=== PATIENT | male | born 1950 | race Caucasian/White ===

== ENCOUNTER 2017-03-18 08:19 | Emergency (ER) | payer MEDICARE, OTHER ==
[2017-03-18 08:48] VITALS: BP 118/68; PULSE 69; RESP 16; TEMP 97.8
[2017-03-18] MEDS ORDERED: IBUPROFEN 600 MG TAB PO STA (08:50)
--- NOTE | 2017-03-18 08:55 | ED ---
Upper Extremity HPI - General Chief Complaint: Extremity Injury, Upper Stated Complaint: LEFT WRIST INJURY Time Seen by Provider: 03/18/17 08:41 Source: patient, RN notes reviewed Mode of arrival: ambulatory Limitations: no limitations - History of Present Illness Initial Comments: Patient is a 67-year-old male presents to the emergency room for evaluation of left wrist pain. Patient states yesterday he tripped and fell landing on his left wrist in flexion position. Patient states he's having pain in his wrist. Patient denies any numbness or tingling in his fingers. Patient denies any other injuries during incident. Patient states it hurts to make a fist. Patient states it hurts to flex or extend his wrist. Patient denies taking anything for pain. Patient denies any previous injuries or surgeries to that wrist. Place: home - Related Data Home Medications Medication Instructions Recorded Confirmed Donepezil [Aricept] 10 mg PO HS 03/31/15 03/18/17 Omeprazole [PriLOSEC] 20 mg PO AC-BRKFST 01/12/16 03/18/17 Atorvastatin [Lipitor] 20 mg PO HS 03/18/17 03/18/17 Citalopram Hydrobromide [CeleXA] 20 mg PO HS 03/18/17 03/18/17 Ibuprofen [Motrin] 800 mg PO DAILY PRN 03/18/17 03/18/17 Losartan-Hctz 50-12.5 mg [Hyzaar 1 tab PO BID 03/18/17 03/18/17 50-12.5] Previous Rx's Medication Instructions Recorded Metoprolol Tartrate [Lopressor] 25 mg PO BID #60 tab 01/14/16 Allergies Allergy/AdvReac Type Severity Reaction Status Date / Time No Known Allergies Allergy Verified 03/18/17 09:29 Review of Systems ROS Statement: Those systems with pertinent positive or pertinent negative responses have been documented in the HPI. ROS Other: All systems not noted in ROS Statement are negative. Past Medical History Past Medical History: Cancer, GERD/Reflux, Hypertension, Memory Impairment, Prostate Disorder Additional Past Medical History / Comment(s): sarcoma, chronic back pain, possible hx of seizures - pt has a language barrier and not available, pt having difficulty understanding my questions. he is on lamictal and keppra History of Any Multi-Drug Resistant Organisms: None Reported Past Surgical History: Hernia Repair Past Anesthesia/Blood Transfusion Reactions: No Reported Reaction Past Psychological History: No Psychological Hx Reported Smoking Status: Never smoker Past Alcohol Use History: Occasional Past Drug Use History: None Reported - Past Family History Father Family Medical History: Hypertension General Exam - General Exam Comments Initial Comments: Sitting in exam room, no acute distress. Limitations: no limitations General appearance: alert, in no apparent distress Head exam: Present: atraumatic, normocephalic, normal inspection Eye exam: Present: normal appearance ENT exam: Present: normal exam Neck exam: Present: normal inspection Respiratory exam: Absent: respiratory distress Left Hand Wrist exam: Present: tenderness (Tenderness on palpating over distal ulnar and radial portions of the wrist), swelling. Absent: full ROM (Limited flexion and extension secondary to pain.) Neuro motor exam: Present: thumb opposition intact Vascular: Present: normal capillary refill (Capillary refill less than 2 seconds ), radial pulse (2+), ulnar pulse (2+) Back exam: Present: normal inspection Neurological exam: Present: alert, oriented X3, CN II-XII intact, normal gait Psychiatric exam: Present: normal affect, normal mood Skin exam: Present: warm, dry, intact, normal color. Absent: rash Course Vital Signs 03/18/17 08:45 Temperature 97.8 F Pulse Rate 69 Respiratory 16 Rate Blood Pressure 118/68 O2 Sat by Pulse 96 Oximetry Medical Decision Making - Medical Decision Making Patient is a 67-year-old male presents to the emergency room for evaluation of left wrist pain. Left wrist/hand x-ray showed no acute fractures or dislocations. Patient placed in an Ravi wrap and advised to follow-up with primary care provider symptoms are not improving in 7-10 days. Patient can take Tylenol or Motrin for pain. Patient states he understands everything that was discussed with him. Return parameters discussed. - Radiology Data Radiology results: report reviewed, image reviewed Disposition Clinical Impression: Left wrist sprain Disposition: HOME SELF-CARE Condition: Good Instructions: Wrist Sprain (ED) Additional Instructions: Ice on and off for 10-15 minutes for the next 24-48 hours. Take Tylenol or Motrin as needed for pain. Please follow-up with primary care provider in 7-10 days if symptoms are not improving. If new symptoms develop or symptoms worsen, please return to the ER. Referrals: Dinesh Wray MD [Primary Care Provider] - 1-2 days Time of Disposition: 09:33
--- NOTE | 2017-03-18 09:14 | XR ---
EXAMINATION TYPE: XR hand complete LT, XR wrist complete LT DATE OF EXAM: 03/18/2017 9:10 AM CLINICAL HISTORY: pain TECHNIQUE: Frontal, lateral and oblique images of the left hand are obtained. COMPARISON: None. FINDINGS: There is no acute fracture/dislocation evident. The joint spaces appear within normal limi ts. The overlying soft tissue appears unremarkable. IMPRESSION: There is no acute fracture or dislocation. ICD 10 NO FRACTURE, INITIAL EVALUATION EXAMINATION TYPE: XR hand complete LT, XR wrist complete LT DATE OF EXAM: 03/18/2017 9:10 AM CLINICAL HISTORY: pain TECHNIQUE: Frontal, lateral and oblique images of the left wrist are obtained. COMPARISON: None. FINDINGS: There is no acute fracture/dislocation evident. The joint spaces appear within normal meza its. The overlying soft tissue appears unremarkable. IMPRESSION: There is no acute fracture or dislocation seen. ICD 10 NO FRACTURE, INITIAL EVALUATION
== END 2017-03-18 09:38 | disposition home or self-care (01) ==
LOC: EC 08:19
DX: S63.502A Unspecified sprain of left wrist, initial encounter (principal); K21.9 Gastro-esophageal reflux disease without esophagitis; I10 Essential (primary) hypertension; Z85.828 Personal history of other malignant neoplasm of skin; W01.0XXA Fall on same level from slipping, tripping and stumbling without subsequent striking against object, initial encounter
CPT/HCPCS: 99283

== ENCOUNTER → 2017-09-08 | Outpatient (CLI) | payer MEDICARE, OTHER ==
--- NOTE | 2017-09-08 15:44 | PN ---
PROGRESS NOTE DATE OF SERVICE: 09/08/2017 67-year-old gentleman has been followed in [facility] Center for treatment of obstructive sleep apnea-hypopnea syndrome. Patient had a sleep study about 2 years ago, which showed severe sleep apnea. After that the patient was started on treatment with CPAP, but he was not able to use equipment and returned his CPAP equipment after several days of usage. At the present time, he continued to have problems with his sleep. He wakes up from sleep multiple times. He has snoring. He feels some tiredness and sleepiness during the day. [place] Sleepiness Scale today is 12. MEDICATIONS: Ferrous sulfate, citalopram, losartan, , atorvastatin, Linzess, , omeprazole. PHYSICAL EXAM: GENERAL Patient in no distress VITAL SIGNS BP 129/78, HR 74, RR 16, height 5 feet 4-1/2 inches, weight 206, BMI 34.8. Neck 16-3/4 inch in circumference. Temperature 97.8, oxygen saturation room air 94%. HEENT PERRLA, EOMI, evaluation of oropharynx showed low position of soft palate. NECK Supple, no JVD. Thyroid is not palpable. LUNGS Clear to percussion and to auscultation. Good air exchange. No wheezing or rhonchi. HEART S1, S2 regular. No murmurs, gallops, or rubs. ABDOMEN: Obese. Soft and nontender. Bowel sounds are present. No organomegaly appreciated. EXTREMITIES No clubbing or cyanosis. 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 Cranial nerves 2 to 7 intact. There is no fasciculation or atrophy. noted. No focal deficits observed. IMPRESSION: 1. Snoring, multiple awakenings from sleep, low position of soft palate, history of obstructive sleep apnea-hypopnea syndrome documented about 2 years ago in severe range. Obstructive sleep apnea-hypopnea syndrome. 2. Obesity. 3. History of seizure disorder. 4. History of prostate carcinoma. 5. Status post surgical treatment for right leg sarcoma. 6. Status post stroke with left-sided weakness about 15 years ago. PLAN: 1. Polysomnogram for evaluation of patient's breathing during the sleep. 2. CPAP titration for correction of respiratory abnormalities. 3. The patient should receive his CPAP unit after the test as soon as possible and should use equipment every night for the whole night. 4. Losing weight. 5. Sleep hygiene with regular time in bed for at least 8 hours. 6. No driving if feeling sleepiness. Thank you very much for allowing me to participate in management of your patient. Sincerely, Kevyn Lynch MD, PhD, FAASM Diplomat of [employer] Treatment Coordinator of [facility] [place] MMODL / LEWISN: [id number] /
== END | disposition home or self-care (01) ==
LOC: SLEEP 14:33
PROVIDERS: ATTEND Internal Medicine
DX: G47.33 Obstructive sleep apnea (adult) (pediatric) (principal); E66.9 Obesity, unspecified; Z68.34 Body mass index [BMI] 34.0-34.9, adult; Z79.899 Other long term (current) drug therapy

== ENCOUNTER → 2017-12-29 | Outpatient (CLI) | payer MEDICARE, OTHER ==
--- NOTE | 2017-12-29 15:02 | SFUN ---
SLEEP STUDY FOLLOW UP NOTE DATE OF SERVICE: 12/29/2017 A 67-year-old gentleman who has been followed in the Sleep Center for treatment of severe obstructive sleep apnea-hypopnea syndrome. Recently patient had a polysomnogram and CPAP titration and I discussed results of sleep studies with patient in detail. He was started on treatment with CPAP. He is trying to use CPAP equipment every night but experiencing dryness in his mouth. He already tried to increase humidity in his machine and sometimes water is out in his humidity in the morning. Patient mentioned that he has a lot of dreams and a lot of movements during the night. He did not bring his machine with him, so I cannot check how it works. [place] Sleepiness Scale today is 12. MEDICATIONS: Citalopram, losartan, atorvastatin, omeprazole, ferrous sulfate supplement. PHYSICAL EXAM: Patient in no distress. BP 146/76, HR 80, RR 16, weight 212, temp 97.2, oxygen saturation room air 96%. OROPHARYNX: Extremely low position of soft palate. ABDOMEN: Obese. Neck Supple, no JVD. Thyroid is not palpable. LUNGS Clear to percussion and to auscultation. Good air exchange. No wheezing or rhonchi. HEART S1, S2 regular. No murmurs, gallops, or rubs. EXTREMITIES No clubbing or cyanosis. 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 Cranial nerves 2 to 7 intact. There is no fasciculation or atrophy. noted. No focal deficits observed. IMPRESSION: 1. Severe obstructive sleep apnea-hypopnea syndrome. Patient was started on treatment with CPAP, but I did not see his CPAP unit and I could not check his compliance today and analyze the reading of his machine. 2. Obesity. 3. Significant amount of movement during the night. Possible REM sleep behavioral disorder. 4. History of prostate carcinoma. 5. History of seizures. 6. Status post surgical treatment for right leg sarcoma. 7. Status post stroke with left-sided weakness about 15 years ago. PLAN: 1. Continue treatment with CPAP every night. 2. Losing weight. 3. Sleep hygiene with regular time bed for at least 7-1/2 hours. 4. Followup visit with all equipment including mask and machine. 5. No driving if feeling any sleepiness. Thank you very much for allowing me to participate in the management of your patient. Sincerely, Kevyn Lynch MD, PhD, FAASM Diplomat of [employer] [employer] [employer] Mixer [employer] of [facility] [place] MMHUMBLE / VIVI: [id number] /
== END | disposition home or self-care (01) ==
LOC: SLEEP 13:35
PROVIDERS: ATTEND Internal Medicine
DX: G47.33 Obstructive sleep apnea (adult) (pediatric) (principal); E66.9 Obesity, unspecified; Z99.89 Dependence on other enabling machines and devices; Z85.46 Personal history of malignant neoplasm of prostate; Z86.69 Personal history of other diseases of the nervous system and sense organs; Z86.73 Personal history of transient ischemic attack (TIA), and cerebral infarction without residual deficits; Z79.899 Other long term (current) drug therapy

== ENCOUNTER → 2018-01-26 | Outpatient (CLI) | payer MEDICARE, OTHER ==
--- NOTE | 2018-01-26 12:19 | SFUN ---
SLEEP STUDY FOLLOW UP NOTE DATE OF SERVICE: 01/26/2018 A 67-year-old gentleman who has been followed in the Sleep Center for treatment of severe obstructive sleep apnea-hypopnea syndrome. The patient tried to use CPAP equipment, but basically cannot use it. He has some problem with a full-face mask, itching over the skin in the area of the mask, leaking from the mask. I checked his BiPAP unit. Presently maximal inspiratory pressure 17, minimal expiratory pressure of 5.0, very high leak 92 L/minute. The patient used it only one night out of the last month for more than 4 hours. [place] Sleepiness Scale 12. MEDICATIONS: Citalopram, losartan, atorvastatin, omeprazole, ferrous sulfite. PHYSICAL EXAM: A gentleman without distress. BP 143/69, HR 64, RR 16, height 5, 4, weight 200, BMI 34.3. Patient has lost 12 pounds since the last visit, temperature 98.0, oxygen saturation on room air 98%. Oropharynx extremely low position of soft palate. Neck Supple, no JVD. Thyroid is not palpable. LUNGS Clear to percussion and to auscultation. Good air exchange. No wheezing or rhonchi. HEART S1, S2 regular. No murmurs, gallops, or rubs. ABDOMEN Soft and nontender. Bowel sounds are present. No organomegaly appreciated. EXTREMITIES No clubbing or cyanosis. 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 Cranial nerves 2 to 7 intact. There is no fasciculation or atrophy. noted. No focal deficits observed. IMPRESSION: 1. Severe obstructive sleep apnea-hypopnea syndrome; apnea-hypopnea index 32.9. Patient started to use CPAP equipment, but has problem with full-face mask. 2. Obesity, patient lost 12 pounds since last visit. 3. Significant amount of movement during the night. Possible REM sleep behavioral disorder. 4. History of prostate carcinoma. 5. History of seizures. 6. Status post surgical treatment for right leg sarcoma. 7. History of stroke with left-sided weakness about 15 years ago. PLAN: 1. We will keep patient with the nasal pillow mask. 2. Continue to use CPAP equipment every night for the whole night. 3. Continue losing weight. 4. Sleep hygiene with regular time in bed for at least 8 hours. 5. No driving if feeling sleepiness. Thank you very much for allowing me to participate in management of your patient. Sincerely, Kevyn Lynch MD, PhD, FAASM Diplomat of [place] [employer] [employer] Hvac/R Service Technician of [facility] [place] DAJA / VIVI: [id number] /
== END | disposition home or self-care (01) ==
LOC: SLEEP 10:31
PROVIDERS: ATTEND Internal Medicine
DX: G47.33 Obstructive sleep apnea (adult) (pediatric) (principal); E66.9 Obesity, unspecified; Z85.46 Personal history of malignant neoplasm of prostate; Z86.69 Personal history of other diseases of the nervous system and sense organs; Z85.831 Personal history of malignant neoplasm of soft tissue; Z99.89 Dependence on other enabling machines and devices; Z79.899 Other long term (current) drug therapy

== ENCOUNTER → 2018-05-17 | Outpatient (CLI) | payer MEDICARE, OTHER ==
--- NOTE | 2018-05-17 17:53 | PN ---
PROGRESS NOTE DATE OF SERVICE: 05/17/2019 This 68-year-old gentleman has been followed in sleep center for treatment of severe obstructive sleep apnea-hypopnea syndrome; apnea-hypopnea index 32.9. During the previous visit, patient was started on treatment with a CPAP, but did not demonstrate usage of the machine in good range. Today he came for followup visit, but unfortunately again he is not able to use his CPAP equipment. He does not feel better with that and denying if using equipment, but refusing to continue to use his CPAP equipment. I again tried to discuss with the patient results of his sleep study, that the sleep study is in severe range and that sleep apnea may increase risk for several medical conditions, including stroke, and patient has history of stroke 15 years ago, but he still does not want to use his CPAP equipment. I checked his CPAP unit. The patient did not use it for the last months at all and for the last 3 months, he totally used it only 15 nights and only 2 nights more than 4 hours. Reading from the machine at that time in the patient used machine showed that his breathing normalized with the machine. Apnea-hypopnea index was 3.9, which is in normal range. I showed these results to the patient's from the screen of the machine, also. CURRENT MEDICATIONS: 1. Citalopram. 2. Losartan. 3. Atorvastatin. 4. Omeprazole. 5. Ferrous sulfate. PHYSICAL EXAMINATION: GENERAL Patient in no distress. VITAL SIGNS BP 132/69, HR 95, RR 16, height 5 feet 4 inches, weight 197.8, BMI 32.4, temperature 97.5, oxygen saturation 96%. HEENT PERRLA, EOMI, evaluation of oropharynx showed tongue protrudes midline, extremely low position of soft palate. Neck Supple, no JVD. Thyroid is not palpable. LUNGS Clear to percussion and to auscultation. Good air exchange. No wheezing or rhonchi. HEART S1, S2 regular. No murmurs, gallops, or rubs. ABDOMEN Slightly obese, soft and nontender. Bowel sounds are present. No organomegaly appreciated. EXTREMITIES No clubbing or cyanosis. 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 Cranial nerves 2 to 7 intact. There is no fasciculation or atrophy. noted. No focal deficits observed. IMPRESSION: 1. Severe obstructive sleep apnea-hypopnea syndrome. Patient refusing using CPAP equipment, even after again discussion over any negative effects of any sleep apnea on the health. I again discussed with the patient the necessity of use CPAP to prevent the possibility of stroke and other medical problems, but patient still refuses using the equipment. 2. Obesity. 3. History of prostate carcinoma. 4. History of stroke 15 years ago. 5. History of seizures. 6. Status post surgical treatment for right leg sarcoma. PLAN: 1. Again, my recommendation for the patient is to use the CPAP every night. 2. Watching and losing weight. 3. Sleep hygiene with regular time in bed for at least 8 hours. 4. No driving if feeling any sleepiness. Thank you very much for allowing me to participate in management of your patient. Sincerely, Kevyn Lynch MD, PhD, FAASM Diplomat of [place] [employer] [place] [employer] Biology Tutor of [facility] [place] DAJA / LEWISN: [id number] /
== END | disposition home or self-care (01) ==
LOC: SLEEP 15:36
PROVIDERS: ATTEND Internal Medicine
DX: G47.33 Obstructive sleep apnea (adult) (pediatric) (principal); E66.9 Obesity, unspecified; R56.9 Unspecified convulsions; Z85.46 Personal history of malignant neoplasm of prostate; Z86.73 Personal history of transient ischemic attack (TIA), and cerebral infarction without residual deficits; Z85.828 Personal history of other malignant neoplasm of skin; Z99.89 Dependence on other enabling machines and devices; Z68.32 Body mass index [BMI] 32.0-32.9, adult; Z79.899 Other long term (current) drug therapy

== ENCOUNTER 2018-09-06 11:12 | Emergency (ER) | payer MEDICARE, OTHER ==
[2018-09-06 11:19] VITALS: RESP 20
[2018-09-06] MEDS ORDERED: KETOROLAC 60 MG/2 ML VIAL IM STA (12:12)
[2018-09-06] MEDS ORDERED: DIPH,PERTUS(ACELL)TETVAC-LF 0.5 ML VIAL IM ONE (12:12)
--- NOTE | 2018-09-06 12:15 | ED ---
General Adult HPI - General Chief complaint: Fall Stated complaint: Shoulder pain/Fall Time Seen by Provider: 09/06/18 11:15 Source: patient, RN notes reviewed Mode of arrival: ambulatory Limitations: no limitations - History of Present Illness Initial comments: This is a 68-year-old male who presents emergency Department complaining of a fall 5 days ago. Patient states after a few days he was having much more pain in his right mid [place] and his left upper arm. Patient states is difficult to move his upper arm because of the pain. Patient decided to come in today because it was not improving. Patient does not know when his last tetanus was and he hasn't abrasion on his [place] that is healing. Patient denies any other injury. Patient denies any headache patient denies any neck pain. Patient denies any chest pain difficulty breathing shortest breath per patient denies any back pain. Patient denies any abdominal pain. Hip pain patient denies any hip pain - Related Data Home Medications Medication Instructions Recorded Confirmed Donepezil [Aricept] 10 mg PO HS 03/31/15 09/06/18 Citalopram Hydrobromide [CeleXA] 20 mg PO HS 03/18/17 09/06/18 Ferrous Sulfate [Feosol] 325 mg PO BID 09/06/18 09/06/18 Linaclotide [Linzess] 145 mg PO DAILY 09/06/18 09/06/18 Mirabegron [Myrbetriq] 50 mg PO DAILY 09/06/18 09/06/18 lamoTRIgine [LaMICtal] 150 mg PO BID 09/06/18 09/06/18 Allergies Allergy/AdvReac Type Severity Reaction Status Date / Time No Known Allergies Allergy Verified 09/06/18 12:44 Review of Systems ROS Statement: Those systems with pertinent positive or pertinent negative responses have been documented in the HPI. ROS Other: All systems not noted in ROS Statement are negative. Past Medical History Past Medical History: Cancer, GERD/Reflux, Hypertension, Memory Impairment, Prostate Disorder Additional Past Medical History / Comment(s): sarcoma, chronic back pain, possible hx of seizures - pt has a language barrier and not available, pt having difficulty understanding my questions. he is on lamictal and keppra History of Any Multi-Drug Resistant Organisms: None Reported Past Surgical History: Hernia Repair Past Anesthesia/Blood Transfusion Reactions: No Reported Reaction Past Psychological History: No Psychological Hx Reported Smoking Status: Never smoker Past Alcohol Use History: Occasional Past Drug Use History: None Reported - Past Family History Father Family Medical History: Hypertension General Exam - General Exam Comments Initial Comments: GENERAL: Patient is well-developed and well-nourished. Patient is nontoxic and well- hydrated and is in mild distress. ENT: Neck is soft and supple. No significant lymphadenopathy is noted. Oropharynx is clear. Moist mucous membranes. Neck has full range of motion without eliciting any pain. EYES: The sclera were anicteric and conjunctiva were pink and moist. Extraocular movements were intact and pupils were equal round and reactive to light. Eyelids were unremarkable. PULMONARY: Unlabored respirations. Good breath sounds bilaterally. No audible rales rhonchi or wheezing was noted. CARDIOVASCULAR: There is a regular rate and rhythm without any murmurs gallops or rubs. ABDOMEN: Soft and nontender with normal bowel sounds. SKIN: Skin is clear with no lesions or rashes and otherwise unremarkable. NEUROLOGIC: Patient is alert and oriented x3. Cranial nerves II through XII are grossly intact. Motor and sensory are also intact. Normal speech, volume and content. Symmetrical smile. MUSCULOSKELETAL: Normal extremities with adequate strength and full range of motion. Patient has some tenderness in the superficial abrasion that appears to be healing on the right [place] no signs of infection. There is very tender to palpation. Patient also has some bruising to the upper left arm and is exquisitely tender to touch the patient is unable to lift the arm forward and backward or abduct the arm LYMPHATICS: No significant lymphadenopathy is noted PSYCHIATRIC: Normal psychiatric evaluation. Limitations: no limitations Course Vital Signs 09/06/18 09/06/18 11:15 13:19 Temperature 98.3 F 98.1 F Pulse Rate 88 71 Respiratory 20 20 Rate Blood Pressure 155/81 146/86 O2 Sat by Pulse 99 96 Oximetry Medical Decision Making - Medical Decision Making X-ray of the tib-fib on the right was negative for fracture X-ray of the left humerus showed no dislocation or fracture. Patient stated he would follow-up with orthopedics. Patient stated he would not need any pain medicine Disposition Clinical Impression: Abrasion of right leg, Rotator cuff injury Disposition: HOME SELF-CARE Instructions: Fall Prevention for Older Adults (ED) Is patient prescribed a controlled substance at d/c from ED?: No Referrals: Purzycki,Dinesh, MD [Primary Care Provider] - 1-2 days Stevan Ash MD [STAFF PHYSICIAN] - 1-2 days Time of Disposition: 14:05
--- NOTE | 2018-09-06 12:45 | XR ---
EXAMINATION TYPE: XR tibia fibula RT DATE OF EXAM: 09/06/2018 COMPARISON: NONE HISTORY: Pain TECHNIQUE: Two views are submitted. FINDINGS: The osseous structures are intact. Arthropathy of the knee joint.. IMPRESSION: 1. No acute osseous abnormality.
--- NOTE | 2018-09-06 12:45 | XR ---
EXAMINATION TYPE: XR humerus LT DATE OF EXAM: 09/06/2018 COMPARISON: NONE HISTORY: Pain TECHNIQUE: 2 views submitted. FINDINGS: The osseous structures are intact and the joint spaces are preserved. IMPRESSION: 1. No acute fracture or dislocation.
[2018-09-06 14:19] VITALS: BP 149/61; PULSE 73; TEMP 98.2
== END 2018-09-06 14:18 | disposition home or self-care (01) ==
LOC: EC 11:12
DX: S46.002A Unspecified injury of muscle(s) and tendon(s) of the rotator cuff of left shoulder, initial encounter (principal); S80.811A Abrasion, right lower leg, initial encounter; I10 Essential (primary) hypertension; Z23 Encounter for immunization; Z85.831 Personal history of malignant neoplasm of soft tissue; Z79.899 Other long term (current) drug therapy; W19.XXXA Unspecified fall, initial encounter; Y92.009 Unspecified place in unspecified non-institutional (private) residence as the place of occurrence of the external cause
CPT/HCPCS: 90471; 90715; 96372; 99283

== ENCOUNTER 2018-12-12 07:32 | Emergency (ER) | payer MEDICARE, OTHER ==
[2018-12-12 07:52] VITALS: RESP 18
[2018-12-12] MEDS ORDERED: IPRATROPIUM-ALBUTEROL 3 ML NEB INHALATION STA ×2 (08:05→09:08)
--- NOTE | 2018-12-12 08:09 | ED ---
General Adult HPI - General Chief complaint: Recheck/Abnormal Lab/Rx Stated complaint: cough Time Seen by Provider: 12/12/18 07:55 Source: patient, RN notes reviewed Mode of arrival: ambulatory Limitations: no limitations - History of Present Illness Initial comments: Patient 68-year-old Kael's resents to the emergency room today with a chief complaint of cough congestion over the past week. The she does admit to positive sputum production it's been brown in color. Also admits to yellow rhinorrhea. Patient states that his had similar symptoms a week prior. Patient admits that is also noticed that his blood pressures been elevated at times at home as been checking it. He does admit that his been taking over-the- counter medications for his cough and cold. Patient admits to pain in his chest when he coughs. No pain at rest. Patient denies any other complaints or symptoms. Patient denies any recent fever, chills, shortness of breath, back pain, abdominal pain, nausea or vomiting, headaches or visual changes, or any other complaints. - Related Data Home Medications Medication Instructions Recorded Confirmed Donepezil [Aricept] 10 mg PO HS 03/31/15 12/12/18 Citalopram Hydrobromide [CeleXA] 20 mg PO HS 03/18/17 12/12/18 Ferrous Sulfate [Feosol] 325 mg PO BID 09/06/18 12/12/18 lamoTRIgine [LaMICtal] 150 mg PO BID 09/06/18 12/12/18 Ibuprofen [Motrin] 800 mg PO Q8H PRN 12/12/18 12/12/18 Omeprazole 20 mg PO DAILY 12/12/18 12/12/18 Temazepam [Restoril] 30 mg PO HS PRN 12/12/18 12/12/18 Previous Rx's Medication Instructions Recorded Albuterol Inhaler [Ventolin Hfa 1 - 2 puff INHALATION Q4-6H PRN #1 12/12/18 Inhaler] inhaler Azithromycin [Zithromax] 500 mg PO DAILY 5 Days tab 12/12/18 predniSONE 40 mg PO DAILY 5 Days tab 12/12/18 Allergies Allergy/AdvReac Type Severity Reaction Status Date / Time No Known Allergies Allergy Verified 12/12/18 08:14 Review of Systems ROS Statement: Those systems with pertinent positive or pertinent negative responses have been documented in the HPI. ROS Other: All systems not noted in ROS Statement are negative. Past Medical History Past Medical History: Cancer, GERD/Reflux, Hypertension, Memory Impairment, Prostate Disorder Additional Past Medical History / Comment(s): sarcoma, chronic back pain, possible hx of seizures - pt has a language barrier and not available, pt having difficulty understanding my questions. he is on lamictal and keppra History of Any Multi-Drug Resistant Organisms: None Reported Past Surgical History: Hernia Repair Past Anesthesia/Blood Transfusion Reactions: No Reported Reaction Past Psychological History: No Psychological Hx Reported Smoking Status: Never smoker Past Alcohol Use History: Occasional Past Drug Use History: None Reported - Past Family History Father Family Medical History: Hypertension General Exam - General Exam Comments Initial Comments: General: The patient is awake and alert, in no distress, and does not appear acutely ill. Eye: There is normal conjunctiva bilaterally. No signs of icterus. Ears, nose, mouth and throat: There are moist mucous membranes and no oral lesions. Neck: The neck is supple Cardiovascular: There is a regular rate and rhythm. No murmur, rub or gallop is appreciated. Respiratory: Mild expiratory wheeze but bilateral. respirations are non-labored , breath sounds are equal. No stridor, rales, or rhonchi. Musculoskeletal: Normal ROM, no tenderness. Radial pulses equal bilaterally 2+ . Neurological: A&O x 3. CN II-XII intact, There are no obvious motor or sensory deficits. Coordination appears grossly intact. Speech is normal. Skin: Skin is warm and dry and no rashes or lesions are noted. Psychiatric: Cooperative, appropriate mood & affect, normal judgment. Limitations: no limitations Course Vital Signs 12/12/18 12/12/18 12/12/18 07:49 08:36 08:48 Temperature 97.8 F Pulse Rate 62 68 68 Respiratory 18 Rate Blood Pressure 138/84 O2 Sat by Pulse 98 Oximetry 12/12/18 09:25 Temperature Pulse Rate 60 Respiratory Rate Blood Pressure O2 Sat by Pulse Oximetry EKG Findings - EKG Comments: EKG Findings:: EKG performed at 0830: Shows sinus bradycardia at 58 bpm. GA interval 158. QRS 98. QT/QTc 442/433. No acute ST changes. Compared to previous EKG on 01/13/2016. Medical Decision Making - Medical Decision Making Chest x-ray reviewed is negative for any acute abnormality. Patient given breathing treatments here in the emergency room does admit to improvement. Patient vitals are stable. Patient breath sounds improved. Patient has had cough congestion without sputum production. Patient will be treated with a course of steroids, Z-Pepe for symptoms. Is advised close follow-up the family doctor over the next 2 days return to emergency room symptoms increase or worsen. Disposition Clinical Impression: Acute bronchitis Disposition: HOME SELF-CARE Condition: Good Instructions (If sedation given, give patient instructions): Acute Bronchitis ( ED) Additional Instructions: Please use medication as discussed. Please follow-up with family doctor in the next 2 days of symptoms have not improved. Please return to emergency room if the symptoms increase or worsen or for any other concerns. Prescriptions: Albuterol Inhaler [Ventolin Hfa Inhaler] 1 - 2 puff INHALATION Q4-6H PRN #1 inhaler PRN Reason: Cough Azithromycin [Zithromax] 500 mg PO DAILY 5 Days tab predniSONE 40 mg PO DAILY 5 Days tab Is patient prescribed a controlled substance at d/c from ED?: No Referrals: Dinesh Wray MD [Primary Care Provider] - 1-2 days Time of Disposition: 09:37
--- NOTE | 2018-12-12 08:33 | XR ---
EXAMINATION TYPE: XR chest 2V DATE OF EXAM: 12/12/2018 COMPARISON: January 13, 2016 HISTORY: Shortness of breath TECHNIQUE: Frontal and lateral views of the chest are obtained. FINDINGS: Scattered senescent parenchymal changes noted. Hyperinflation compatible with COPD. No evidence for infiltrate. No evidence for atelectasis. Moderate fixed hiatal hernia redemonstrated. Heart size is stable. Mediastinal structures are stable and grossly unremarkable. No evidence for hilar prominence. Degenerative changes dorsal spine. IMPRESSION: 1. No evidence for acute pulmonary disease.
[2018-12-12 10:00] VITALS: BP 125/64; PULSE 64; TEMP 98.8
== END 2018-12-12 10:05 | disposition home or self-care (01) ==
LOC: EC 07:32
DX: J20.9 Acute bronchitis, unspecified (principal); K21.9 Gastro-esophageal reflux disease without esophagitis; Z79.899 Other long term (current) drug therapy; Z85.831 Personal history of malignant neoplasm of soft tissue
CPT/HCPCS: 71046; 93005; 94640; 99283

== ENCOUNTER → 2019-02-12 | Outpatient (CLI) | payer MEDICARE, OTHER ==
[2019-02-12 14:21] LABS: HCT 41.5 % (39.0-53.0); HGB 14.4 gm/dL (13.0-17.5); MCH 30.3 pg (25.0-35.0); MCHC 34.8 g/dL (31.0-37.0); MCV 87.1 fL (80.0-100.0); Platelet Count 215 k/uL (150-450); RBC 4.76 m/uL (4.30-5.90); RDW 14.6 % (11.5-15.5); WBC 4.1 k/uL (3.8-10.6)
[2019-02-12 20:23] LABS: Anion Gap 4.3 mmol/L (4.00-12.00); Carbon Dioxide 27.7 mmol/L (21.6-31.8); Potassium 4.8 mmol/L (3.5-5.5)
[2019-02-12 20:30] LABS: Folate, Serum 18.7 ng/mL
[2019-02-12 20:32] LABS: T4, Free (Free Thyroxine) 1.1 ng/dL (0.80-1.80)
== END ==
LOC: LABWHC1 12:37
PROVIDERS: ATTEND Psychiatry & Neurology Neurology
DX: R41.3 Other amnesia (principal)
CPT/HCPCS: 36415; 80051; 82175; 82565; 82570; 82607; 82746; 83655; 83825; 84439; 84443; 84481; 84520; 85027

== ENCOUNTER → 2019-02-16 | Outpatient (CLI) | payer MEDICARE, OTHER ==
--- NOTE | 2019-02-16 09:52 | MR ---
EXAMINATION TYPE: MR brain wo/w con DATE OF EXAM: 02/16/2019 COMPARISON: CT brain 01/12/2016 HISTORY: memory loss brain tumor TECHNIQUE: Multiplanar, multisequence images of the brain and brainstem is performed without and with IV contras t, utilizing 8.5 mL intravenous Gadavist . FINDINGS: Diffusion weighted images demonstrate no evidence of a recent infarct or other diffusion ab normality. Colb-lk-[id number] generalized degenerative change. Area of abnormal signal in the right pos terior occipital lobe suggestive of remote infarct. There are a few scattered areas of abnormal signa l the white matter most of remote microvascular ischemia Midline structures demonstrate normal morphology. Partially empty sella turcica noted. The craniocer vical junction appears within normal limits. Post contrast images demonstrate no abnormal enhancemen t. The dural venous sinuses appear patent. Changes of chronic sinusitis are noted. There is artifact noted near the level the nasal bones. IMPRESSION: 1. Degenerative and remote ischemic change with no evidence of acute ischemia. 2. No enhancing mass. 3. Nonspecific white matter changes most typical of remote microvascular ischemia.
== END | disposition home or self-care (01) ==
LOC: RADMRIMAIN 08:49
PROVIDERS: ATTEND Psychiatry & Neurology Neurology
DX: G31.9 Degenerative disease of nervous system, unspecified (principal); R90.82 White matter disease, unspecified
CPT/HCPCS: 70553

== ENCOUNTER 2019-03-18 19:12 | Emergency (ER) | payer MEDICARE, OTHER ==
[2019-03-18] MEDS ORDERED: PANTOPRAZOLE 40 MG/10 ML VIAL IVP STA (20:05)
[2019-03-18] MEDS ORDERED: MAG HYDROX/AL HYDROX/SIMETH 30 ML CUP PO STA (20:06)
[2019-03-18 20:44] LABS: Basophils % (A) 0 %; Eosinophils # (A) 0.1 k/uL (0-0.7); Eosinophils % (A) 2 %; HCT 41.3 % (39.0-53.0); HGB 13.2 gm/dL (13.0-17.5); Lymphocytes % (A) 18 %; MCH 29.1 pg (25.0-35.0); MCHC 32.1 g/dL (31.0-37.0); MCV 90.8 fL (80.0-100.0); Mean Platelet Volume 7.8; Monocytes # (A) 0.6 k/uL (0-1.0); Monocytes % (A) 11 %; Neutrophils # (A) 3.7 k/uL (1.3-7.7); Neutrophils % (A) 65 %; Platelet Count 214 k/uL (150-450); RBC 4.55 m/uL (4.30-5.90); RDW 13.4 % (11.5-15.5); WBC 5.6 k/uL (3.8-10.6)
[2019-03-18 20:54] LABS: ALT 28 U/L (21-72); AST 22 U/L (17-59); Albumin 4.2 g/dL (3.5-5.0); Alkaline Phosphatase 123 U/L (38-126); Anion Gap 9 mmol/L; Blood Urea Nitrogen 21 mg/dL (9-20); Calcium 9.6 mg/dL (8.4-10.2); Carbon Dioxide 20 mmol/L (22-30); Chloride 109 mmol/L (98-107); Glucose 142 mg/dL (74-99); Lipase 346 U/L (23-300); Potassium 4.5 mmol/L (3.5-5.1); Sodium 138 mmol/L (137-145); Total Bilirubin 0.2 mg/dL (0.2-1.3); Total Protein 6.5 g/dL (6.3-8.2)
[2019-03-18 20:57] LABS: Prothrombin Time 10.5 sec (9.0-12.0)
--- NOTE | 2019-03-18 21:01 | US ---
EXAMINATION TYPE: US gallbladder DATE OF EXAM: 03/18/2019 COMPARISON: US 2015 CLINICAL HISTORY: Pain. RUQ pain EXAM MEASUREMENTS: Liver Length: 19.2 cm Gallbladder Wall: 0.3 cm CBD: 0.7 cm Right Kidney: 11.8 x 5.5 x 4.6 cm Pancreas: not well visualized due to overlying bowel gas. Liver: enlarged at 19.2 cm, cyst rt lobe measures 1.2 x 0.9 x 1.1 cm. Gallbladder: No stones seen Evidence for sonographic Snyder's sign: No CBD: measures 0.7 cm Right Kidney: No hydronephrosis or masses seen IMPRESSION: No gallstones or dilated ducts. No ascites.
[2019-03-18 21:20] LABS: Appearance,Urine Clear (Clear); Bilirubin,Urine Negative (Negative); Blood,Urine Negative (Negative); Color,Urine Yellow; Glucose,Urine (UA) Negative (Negative); Ketones,Urine Negative (Negative); Leukocyte Esterase,Urine Negative (Negative); Nitrite,Urine Negative (Negative); PH, Urine 5.5 (5.0-8.0); Protein,Urine Trace (Negative); Specific Gravity,Urine 1.027 (1.001-1.035); Urobilinogen,Urine <2.0 mg/dL (<2.0)
--- NOTE | 2019-03-18 21:56 | CT ---
EXAMINATION TYPE: CT abdomen pelvis w con DATE OF EXAM: 03/18/2019 COMPARISON: 03/15/2016 HISTORY: abdominal pain, hx of prostate ca CT DLP: 1304.9 mGycm Automated exposure control for dose reduction was used. TECHNIQUE: Helical acquisition of images was performed from the lung bases through the pelvis. CONTRAST: Performed without Oral Contrast and with IV Contrast, patient injected with 100 mL of Isovue 300. FINDINGS: Lung bases are clear of consolidation. There is some atelectasis left lower lobe. There is a large hi atal hernia. There is intrathoracic stomach. There is also herniation of intraperitoneal fat into the chest. Heart is enlarged. There is no pleural effusion. Liver shows a 1 cm cyst in the left lobe. The bile ducts are not dilated. Gallbladder appears normal. Spleen appears normal. There is no pancreatic mass. There is no adrenal mass. Kidneys show satisfactory contrast opacification. There is no hydronephrosi s. There is no retroperitoneal adenopathy. Ureters are not dilated. Bladder distends smoothly. There is no inguinal hernia. There is no free fluid in the pelvis. There is no evidence of a pelvic mass. A ppendix is not seen. There is no sign of thickened appendix. There is no evidence of a bowel obstruct ion. There is no mesenteric edema. There is no ascites or free air. There is no intestinal wall thick ening. There is some thinning of the anterior abdominal wall on the left side and broad-based hernia. There is a second-degree L5-S1 spondylolisthesis. There is bilateral L5 spondylolysis. IMPRESSION: VERY LARGE HIATAL HERNIA. MINIMAL ATELECTASIS LEFT LUNG BASE. NO SIGN OF ACUTE ABDOMEN AND PELVIS. NO SIGNIFICANT CHANGE COMPARED TO OLD EXAM.
[2019-03-18 22:21] VITALS: RESP 18
--- NOTE | 2019-03-19 00:18 | ED ---
Abdominal Pain HPI - General Chief Complaint: Abdominal Pain Stated Complaint: Migraine Time Seen by Provider: 03/18/19 19:29 Source: patient Mode of arrival: wheelchair Limitations: no limitations - History of Present Illness Initial Comments: The patient is a 69-year-old male who presents to emergency room with complaint of abdominal pain. The patient admits that he was eating dinner and afterwards had sudden onset of gastric abdominal pain. He does believe that he ate too much food. He states that he was having a burning sensation in his throat and significant abdominal distention. No history of similar in the past. He did not take any medications however presented immediately to the emergency room. He denies any chest pain or chest palpitations. No shortness of breath. He denies any lower abdominal pain. No vomiting. Admits to nausea. Denies any changes in his urination to include dysuria, hematuria or difficulty voiding. Denies any changes in his bowel movements to include diarrhea, constipation, melanotic stools or hematochezia. He denies any fevers or chills. There are no other alleviating, precipitating or modifying factors - Related Data Home Medications Medication Instructions Recorded Confirmed Donepezil [Aricept] 10 mg PO HS 03/31/15 12/12/18 Citalopram Hydrobromide [CeleXA] 20 mg PO HS 03/18/17 12/12/18 Ferrous Sulfate [Feosol] 325 mg PO BID 09/06/18 12/12/18 lamoTRIgine [LaMICtal] 150 mg PO BID 09/06/18 12/12/18 Ibuprofen [Motrin] 800 mg PO Q8H PRN 12/12/18 12/12/18 Omeprazole 20 mg PO DAILY 12/12/18 12/12/18 Temazepam [Restoril] 30 mg PO HS PRN 12/12/18 12/12/18 Previous Rx's Medication Instructions Recorded Albuterol Inhaler [Ventolin Hfa 1 - 2 puff INHALATION Q4-6H PRN #1 12/12/18 Inhaler] inhaler Azithromycin [Zithromax] 500 mg PO DAILY 5 Days tab 12/12/18 predniSONE 40 mg PO DAILY 5 Days tab 12/12/18 Omeprazole 40 mg PO DAILY #30 capsule. 03/19/19 Ranitidine HCl [Zantac] 150 mg PO BID #28 tab 03/19/19 Allergies Allergy/AdvReac Type Severity Reaction Status Date / Time No Known Allergies Allergy Verified 03/18/19 19:24 Review of Systems ROS Statement: Those systems with pertinent positive or pertinent negative responses have been documented in the HPI. ROS Other: All systems not noted in ROS Statement are negative. Past Medical History Past Medical History: Cancer, GERD/Reflux, Hypertension, Memory Impairment, Prostate Disorder Additional Past Medical History / Comment(s): sarcoma, chronic back pain, possible hx of seizures - pt has a language barrier and not available, pt having difficulty understanding my questions. he is on lamictal and keppra History of Any Multi-Drug Resistant Organisms: None Reported Past Surgical History: Hernia Repair Past Anesthesia/Blood Transfusion Reactions: No Reported Reaction Past Psychological History: No Psychological Hx Reported Smoking Status: Never smoker Past Alcohol Use History: Occasional Past Drug Use History: None Reported - Past Family History Father Family Medical History: Hypertension General Exam Limitations: no limitations General appearance: alert, in no apparent distress Head exam: Present: atraumatic, normocephalic, normal inspection Eye exam: Present: normal appearance, PERRL, EOMI. Absent: scleral icterus, conjunctival injection, periorbital swelling ENT exam: Present: normal exam, mucous membranes moist Neck exam: Present: normal inspection. Absent: tenderness, meningismus, lymphadenopathy Respiratory exam: Present: normal lung sounds bilaterally. Absent: respiratory distress, wheezes, rales, rhonchi, stridor Cardiovascular Exam: Present: regular rate, normal rhythm, normal heart sounds. Absent: systolic murmur, diastolic murmur, rubs, gallop, clicks GI/Abdominal exam: Present: soft, tenderness, normal bowel sounds, other (The patient does have tenderness to palpation left upper quadrant. No palpable masses or organomegaly. No flank or peiumbilical ecchymoses.). Absent: guarding, rebound, rigid Extremities exam: Present: normal inspection, full ROM, normal capillary refill. Absent: tenderness, pedal edema, joint swelling, calf tenderness Back exam: Present: normal inspection Neurological exam: Present: alert, oriented X3, CN II-XII intact Psychiatric exam: Present: normal affect, normal mood Skin exam: Present: warm, dry, intact, normal color. Absent: rash Course Vital Signs 03/18/19 03/18/19 03/19/19 19:24 22:19 00:25 Temperature 98 F 97.5 F L Pulse Rate 76 68 74 Respiratory 16 18 18 Rate Blood Pressure 149/79 142/84 143/92 O2 Sat by Pulse 98 98 98 Oximetry Medical Decision Making - Medical Decision Making The patient was placed into room 23. He is hooked up to continuous pulse ox and cardiac monitoring. A 12-lead EKG is performed. Laboratory studies are conducted and the patient is sent for a CT of his abdomen and pelvis. He is also sent for an ultrasound of his gallbladder. He is provided with 10 mg of Maalox and 40 mg of Protonix area. He is reevaluated and has had improvement in his symptoms. He states that his pain is 2 out of 10. I did discuss diagnosis, differential and treatment options. I did recommend the patient stay for a second troponin. The patient's did agree. Second troponin returns and is negative. I did discuss with the patient the large hiatal hernia seen on CAT scan. The patient will have to follow up with his primary care physician in 2-4 days. He will need an EGD. The patient understood this. I will give him prescriptions for omeprazole and Zantac. If the patient has any new or worsening symptoms, he should return to emergency room. Patient was in agreement that she will plan and discharged home in stable condition. - Differential Diagnosis Acute abdominal pain, hiatal hernia, acute nausea - Lab Data Result diagrams: 03/18/19 20:31 03/18/19 20:31 Lab Results 03/18/19 03/18/19 03/18/19 Range/Units 20:31 20:31 20:31 WBC 5.6 (3.8-10.6) k/uL RBC 4.55 (4.30-5.90) m/uL Hgb 13.2 (13.0-17.5) gm/dL Hct 41.3 (39.0-53.0) % MCV 90.8 (80.0-100.0) fL MCH 29.1 (25.0-35.0) pg MCHC 32.1 (31.0-37.0) g/dL RDW 13.4 (11.5-15.5) % Plt Count 214 (150-450) k/uL Neutrophils % 65 % Lymphocytes % 18 % Monocytes % 11 % Eosinophils % 2 % Basophils % 0 % Neutrophils # 3.7 (1.3-7.7) k/uL Lymphocytes # 1.0 (1.0-4.8) k/uL Monocytes # 0.6 (0-1.0) k/uL Eosinophils # 0.1 (0-0.7) k/uL Basophils # 0.0 (0-0.2) k/uL PT (9.0-12.0) sec INR (<1.2) Sodium 138 (137-145) mmol/L Potassium 4.5 (3.5-5.1) mmol/L Chloride 109 H (98-107) mmol/L Carbon Dioxide 20 L (22-30) mmol/L Anion Gap 9 mmol/L BUN 21 H (9-20) mg/dL Creatinine 0.89 (0.66-1.25) mg/dL Est GFR (CKD-EPI)AfAm >90 (>60 ml/min/1.73 sqM) Est GFR (CKD-EPI)NonAf 86 (>60 ml/min/1.73 sqM) Glucose 142 H (74-99) mg/dL Plasma Lactic Acid Brennan 1.4 (0.7-2.0) mmol/L Calcium 9.6 (8.4-10.2) mg/dL Total Bilirubin 0.2 (0.2-1.3) mg/dL AST 22 (17-59) U/L ALT 28 (21-72) U/L Alkaline Phosphatase 123 (38-126) U/L Troponin I (0.000-0.034) ng/mL Total Protein 6.5 (6.3-8.2) g/dL Albumin 4.2 (3.5-5.0) g/dL Lipase 346 H (23-300) U/L Urine Color Urine Appearance (Clear) Urine pH (5.0-8.0) Ur Specific [place] (1.001-1.035) Urine Protein (Negative) Urine Glucose (UA) (Negative) Urine Ketones (Negative) Urine Blood (Negative) Urine Nitrite (Negative) Urine Bilirubin (Negative) Urine Urobilinogen (<2.0) mg/dL Ur Leukocyte Esterase (Negative) 03/18/19 03/18/19 03/18/19 Range/Units 20:31 20:31 21:09 WBC (3.8-10.6) k/uL RBC (4.30-5.90) m/uL Hgb (13.0-17.5) gm/dL Hct (39.0-53.0) % MCV (80.0-100.0) fL MCH (25.0-35.0) pg MCHC (31.0-37.0) g/dL RDW (11.5-15.5) % Plt Count (150-450) k/uL Neutrophils % % Lymphocytes % % Monocytes % % Eosinophils % % Basophils % % Neutrophils # (1.3-7.7) k/uL Lymphocytes # (1.0-4.8) k/uL Monocytes # (0-1.0) k/uL Eosinophils # (0-0.7) k/uL Basophils # (0-0.2) k/uL PT 10.5 (9.0-12.0) sec INR 1.0 (<1.2) Sodium (137-145) mmol/L Potassium (3.5-5.1) mmol/L Chloride (98-107) mmol/L Carbon Dioxide (22-30) mmol/L Anion Gap mmol/L BUN (9-20) mg/dL Creatinine (0.66-1.25) mg/dL Est GFR (CKD-EPI)AfAm (>60 ml/min/1.73 sqM) Est GFR (CKD-EPI)NonAf (>60 ml/min/1.73 sqM) Glucose (74-99) mg/dL Plasma Lactic Acid Brennan (0.7-2.0) mmol/L Calcium (8.4-10.2) mg/dL Total Bilirubin (0.2-1.3) mg/dL AST (17-59) U/L ALT (21-72) U/L Alkaline Phosphatase (38-126) U/L Troponin I <0.012 (0.000-0.034) ng/mL Total Protein (6.3-8.2) g/dL Albumin (3.5-5.0) g/dL Lipase (23-300) U/L Urine Color Yellow Urine Appearance Clear (Clear) Urine pH 5.5 (5.0-8.0) Ur Specific [place] 1.027 (1.001-1.035) Urine Protein Trace H (Negative) Urine Glucose (UA) Negative (Negative) Urine Ketones Negative (Negative) Urine Blood Negative (Negative) Urine Nitrite Negative (Negative) Urine Bilirubin Negative (Negative) Urine Urobilinogen <2.0 (<2.0) mg/dL Ur Leukocyte Esterase Negative (Negative) 03/18/19 Range/Units 23:23 WBC (3.8-10.6) k/uL RBC (4.30-5.90) m/uL Hgb (13.0-17.5) gm/dL Hct (39.0-53.0) % MCV (80.0-100.0) fL MCH (25.0-35.0) pg MCHC (31.0-37.0) g/dL RDW (11.5-15.5) % Plt Count (150-450) k/uL Neutrophils % % Lymphocytes % % Monocytes % % Eosinophils % % Basophils % % Neutrophils # (1.3-7.7) k/uL Lymphocytes # (1.0-4.8) k/uL Monocytes # (0-1.0) k/uL Eosinophils # (0-0.7) k/uL Basophils # (0-0.2) k/uL PT (9.0-12.0) sec INR (<1.2) Sodium (137-145) mmol/L Potassium (3.5-5.1) mmol/L Chloride (98-107) mmol/L Carbon Dioxide (22-30) mmol/L Anion Gap mmol/L BUN (9-20) mg/dL Creatinine (0.66-1.25) mg/dL Est GFR (CKD-EPI)AfAm (>60 ml/min/1.73 sqM) Est GFR (CKD-EPI)NonAf (>60 ml/min/1.73 sqM) Glucose (74-99) mg/dL Plasma Lactic Acid Brennan (0.7-2.0) mmol/L Calcium (8.4-10.2) mg/dL Total Bilirubin (0.2-1.3) mg/dL AST (17-59) U/L ALT (21-72) U/L Alkaline Phosphatase (38-126) U/L Troponin I <0.012 (0.000-0.034) ng/mL Total Protein (6.3-8.2) g/dL Albumin (3.5-5.0) g/dL Lipase (23-300) U/L Urine Color Urine Appearance (Clear) Urine pH (5.0-8.0) Ur Specific [place] (1.001-1.035) Urine Protein (Negative) Urine Glucose (UA) (Negative) Urine Ketones (Negative) Urine Blood (Negative) Urine Nitrite (Negative) Urine Bilirubin (Negative) Urine Urobilinogen (<2.0) mg/dL Ur Leukocyte Esterase (Negative) - EKG Data EKG Comments: EKG demonstrates a normal sinus rhythm with a ventricular rate of 71. [place] interval of 154. QRS 94. QTC of 436. There are no acute ST segment elevations or depressions concerning for ischemic changes. There are mildly peaked T waves in leads V2 and V3. - Radiology Data Radiology results: report reviewed Disposition Clinical Impression: Abdominal pain, Hiatal hernia Disposition: HOME SELF-CARE Condition: Stable Instructions (If sedation given, give patient instructions): Hiatal Hernia (ED), Abdominal Pain (ED) Additional Instructions: Please follow-up with your primary care doctor in 2-4 days. You have a hiatal hernia. You will require an EGD. Return to the emergency room should you have any new or worsening symptoms. Prescriptions: Omeprazole 40 mg PO DAILY #30 capsule. Ranitidine HCl [Zantac] 150 mg PO BID #28 tab Is patient prescribed a controlled substance at d/c from ED?: No Referrals: None,Stated [Primary Care Provider] - 1-2 days Time of Disposition: 00:18
[2019-03-19 00:26] VITALS: BP 143/92; PULSE 74; TEMP 97.5
== END 2019-03-19 00:25 | disposition home or self-care (01) ==
LOC: EC 19:12
DX: K44.9 Diaphragmatic hernia without obstruction or gangrene (principal); R10.9 Unspecified abdominal pain; R94.31 Abnormal electrocardiogram [ECG] [EKG]; R11.0 Nausea; R14.0 Abdominal distension (gaseous); R07.0 Pain in throat; K21.9 Gastro-esophageal reflux disease without esophagitis; G31.84 Mild cognitive impairment of uncertain or unknown etiology; Z79.899 Other long term (current) drug therapy; Z85.831 Personal history of malignant neoplasm of soft tissue; Z98.890 Other specified postprocedural states
CPT/HCPCS: 99284; 96374; 36415; 93005; 80053; 83605; 83690; 84484; 85025; 85610; 81003; 76705; 74177; C9113; Q9967

== ENCOUNTER 2019-04-09 00:58 | Observation (INO) | payer MEDICARE, OTHER ==
[2019-04-09] MEDS ORDERED: METOPROLOL TARTRATE 25 MG TAB PO STA ×2 (01:38→07:20)
[2019-04-09] MEDS ORDERED: NITROGLYCERIN OINT 1 INCH/GM PACKET TOPICAL STA (01:40)
--- NOTE | 2019-04-09 02:11 | XR ---
EXAM: XR Chest, 1 View CLINICAL HISTORY: ITS.REASON XR Reason: chest pain TECHNIQUE: Frontal view of the chest. COMPARISON: 12/12/18. FINDINGS: Lungs: Mild basilar atelectasis or infiltrate. Pleural space: The left lung base is obscured. No large pleural effusion or pneumothorax. Heart: Enlarged cardiac mediastinal silhouette. Mediastinum: Retrocardiac opacity, may be related to previously seen hiatal hernia. Bones/joints: No acute fracture. IMPRESSION: 1. Mild basilar atelectasis or infiltrate. 2. Enlarged cardiac mediastinal silhouette. 3. Retrocardiac opacity, may be related to previously seen hiatal hernia.
[2019-04-09 02:39] LABS: Basophils % (A) 0 %; Eosinophils # (A) 0.1 k/uL (0-0.7); Eosinophils % (A) 3 %; HCT 39.7 % (39.0-53.0); HGB 12.7 gm/dL (13.0-17.5); Lymphocytes # (A) 0.9 k/uL (1.0-4.8); Lymphocytes % (A) 21 %; MCH 27.7 pg (25.0-35.0); MCV 86.6 fL (80.0-100.0); Mean Platelet Volume 7.7; Monocytes # (A) 0.4 k/uL (0-1.0); Monocytes % (A) 9 %; Neutrophils # (A) 2.7 k/uL (1.3-7.7); Neutrophils % (A) 63 %; Platelet Count 211 k/uL (150-450); RBC 4.58 m/uL (4.30-5.90); RDW 12.9 % (11.5-15.5); WBC 4.4 k/uL (3.8-10.6)
[2019-04-09 02:47] LABS: INR 0.9 (<1.2); Partial Thromboplastin Time 23.2 sec (22.0-30.0); Prothrombin Time 10.1 sec (9.0-12.0)
[2019-04-09 03:01] LABS: ALT 24 U/L (21-72); AST 19 U/L (17-59); African American GFR (CKD) >90 (>60 ml/min/1.73 sqM); Alkaline Phosphatase 105 U/L (38-126); Anion Gap 6 mmol/L; Blood Urea Nitrogen 13 mg/dL (9-20); Calcium 9.3 mg/dL (8.4-10.2); Carbon Dioxide 27 mmol/L (22-30); Chloride 106 mmol/L (98-107); Glucose 98 mg/dL (74-99); Potassium 4.6 mmol/L (3.5-5.1); Sodium 139 mmol/L (137-145); Total Bilirubin 0.2 mg/dL (0.2-1.3); Total Protein 6.3 g/dL (6.3-8.2)
[2019-04-09] MEDS ORDERED: NITROGLYCERIN SL TABS 0.4 MG TAB SUBLINGUAL PRN (07:02)
--- NOTE | 2019-04-09 07:08 | ED ---
Chest Pain HPI - General Chief Complaint: Recheck/Abnormal Lab/Rx Stated Complaint: high BP Time Seen by Provider: 04/09/19 01:28 Source: patient, family Mode of arrival: wheelchair Limitations: language barrier - History of Present Illness MD Complaint: chest pain -: hour(s) Onset: during rest Pain Location: left chest Pain Radiation: LUE Severity: moderate Consistency: constant Improves With: nothing Worsens With: nothing Anginal Symptoms: dyspnea Treatments Prior to Arrival: none - Related Data Home Medications Medication Instructions Recorded Confirmed Donepezil [Aricept] 10 mg PO HS 03/31/15 12/12/18 Citalopram Hydrobromide [CeleXA] 20 mg PO HS 03/18/17 12/12/18 Ferrous Sulfate [Feosol] 325 mg PO BID 09/06/18 12/12/18 lamoTRIgine [LaMICtal] 150 mg PO BID 09/06/18 12/12/18 Ibuprofen [Motrin] 800 mg PO Q8H PRN 12/12/18 12/12/18 Omeprazole 20 mg PO DAILY 12/12/18 12/12/18 Temazepam [Restoril] 30 mg PO HS PRN 12/12/18 12/12/18 Previous Rx's Medication Instructions Recorded Albuterol Inhaler [Ventolin Hfa 1 - 2 puff INHALATION Q4-6H PRN #1 12/12/18 Inhaler] inhaler Azithromycin [Zithromax] 500 mg PO DAILY 5 Days tab 12/12/18 predniSONE 40 mg PO DAILY 5 Days tab 12/12/18 Omeprazole 40 mg PO DAILY #30 capsule. 03/19/19 Ranitidine HCl [Zantac] 150 mg PO BID #28 tab 03/19/19 Allergies Allergy/AdvReac Type Severity Reaction Status Date / Time No Known Allergies Allergy Verified 04/09/19 01:12 Review of Systems ROS Statement: Those systems with pertinent positive or pertinent negative responses have been documented in the HPI. ROS Other: All systems not noted in ROS Statement are negative. Constitutional: Denies: fever, chills Respiratory: Reports: dyspnea. Denies: cough Cardiovascular: Reports: chest pain. Denies: palpitations, edema, syncope Gastrointestinal: Denies: abdominal pain, nausea, vomiting Genitourinary: Denies: dysuria Musculoskeletal: Denies: back pain Skin: Denies: rash Neurological: Denies: headache EKG Findings - EKG Results: EKG: interpreted by ERMD, sinus rhythm, normal axis, normal ST/T EKG shows: bradycardia (Rate 59 bpm) - Blocks, [place], Hypertrophy, ST Abn: Chamber hypertrophy or enlargement: only voltage criteria for left ventricular hypertrophy Past Medical History Past Medical History: Cancer, GERD/Reflux, Hypertension, Memory Impairment, Prostate Disorder Additional Past Medical History / Comment(s): sarcoma, chronic back pain, possible hx of seizures - pt has a language barrier and not available, pt having difficulty understanding my questions. he is on lamictal and keppra History of Any Multi-Drug Resistant Organisms: None Reported Past Surgical History: Heart Catheterization With Stent, Hernia Repair Past Anesthesia/Blood Transfusion Reactions: No Reported Reaction Past Psychological History: No Psychological Hx Reported Smoking Status: Never smoker Past Alcohol Use History: Occasional Past Drug Use History: None Reported - Past Family History Father Family Medical History: Hypertension General Exam Limitations: language barrier General appearance: alert, in no apparent distress Head exam: Present: atraumatic, normocephalic Eye exam: Present: normal appearance. Absent: scleral icterus, conjunctival injection ENT exam: Present: normal oropharynx Neck exam: Present: normal inspection, full ROM Respiratory exam: Present: normal lung sounds bilaterally. Absent: respiratory distress, wheezes, rales, rhonchi, stridor, chest wall tenderness Cardiovascular Exam: Present: regular rate, normal rhythm, normal heart sounds. Absent: systolic murmur, diastolic murmur, rubs, gallop GI/Abdominal exam: Present: soft. Absent: distended, tenderness, guarding, rebound, rigid, mass Extremities exam: Present: normal inspection, normal capillary refill. Absent: pedal edema, calf tenderness Back exam: Present: normal inspection. Absent: CVA tenderness (R), CVA tenderness (L) Neurological exam: Present: alert Skin exam: Present: warm, dry, intact, normal color. Absent: rash Course Vital Signs 04/09/19 04/09/19 04/09/19 01:07 01:55 03:41 Temperature 97.3 F L 97.8 F Pulse Rate 63 63 60 Respiratory 16 18 17 Rate Blood Pressure 143/87 145/92 153/81 O2 Sat by Pulse 98 95 95 Oximetry 04/09/19 04/09/19 04:44 06:43 Temperature 97.8 F Pulse Rate 58 L 64 Respiratory 18 18 Rate Blood Pressure 127/82 171/100 O2 Sat by Pulse 97 97 Oximetry Disposition Clinical Impression: Chest pain Disposition: ADMITTED IP TO THIS HOSP Condition: Fair Is patient prescribed a controlled substance at d/c from ED?: No Referrals: Dinesh Wray MD [Primary Care Provider] - 1-2 days
[2019-04-09 09:21] VITALS: BMI 34.0
[2019-04-09] MEDS: LOSARTAN 25 MG TAB PO SCH (10:23)
--- NOTE | 2019-04-09 11:24 | ECHOF ---
Referral Reason: MEASUREMENTS -------- HEIGHT: 162.6 cm WEIGHT: 89.8 kg BP: IVSd: 0.9 cm (0.6 - 1.1) LVIDd: 6.0 cm (3.9 - 5.3) LVPWd: 0.9 cm (0.6 - 1.1) IVSs: 1.0 cm LVIDs: 4.0 cm LVPWs: 1.1 cm Ao Diam: 3.3 cm (2.0 - 3.7) AV Cusp: 1.9 cm (1.5 - 2.6) LA Diam: 2.9 cm (2.7 - 3.8) EPSS: 0.8 cm MV E Juan Luis: 1.12 m/s MV DecT: 331 ms MV A Juan Luis: 1.08 m/s MV E/A Ratio: 1.04 RAP: 5.00 mmHg RVSP: 13.14 mmHg MV EF SLOPE: 68.98 mm/s (70 - 150) MV EXCURSION: 1.41 cm (> 18.000) FINDINGS -------- Sinus rhythm. This was a technically difficult study with suboptimal views. The left ventricle is mildly dilated. Left ventricular wall thickness is normal. Overall left gita tricular systolic function is mild-moderately impaired with, an EF between 40 - 45 %. The right ventricle is normal in size. The left atrial size is normal. The right atrial size is normal. Lumason used The aortic valve is trileaflet and appears structurally normal. There is trace mitral regurgitation. Trace tricuspid regurgitation present. The right ventricular systolic pressure, as measured by Dopp ler, is 13.14mmHg. There is no pulmonic regurgitation present. The aortic root size is normal. The inferior vena cava was not well visualized. There is no pericardial effusion. CONCLUSIONS -------- 1. Sinus rhythm. 2. This was a technically difficult study with suboptimal views. 3. The left ventricle is mildly dilated. 4. Left ventricular wall thickness is normal. 5. Overall left ventricular systolic function is mild-moderately impaired with, an EF between 40 - 45 %. 6. The right ventricle is normal in size. 7. The left atrial size is normal. 8. The right atrial size is normal. 9. Lumason used 10. The aortic valve is trileaflet and appears structurally normal. 11. There is trace mitral regurgitation. 12. Trace tricuspid regurgitation present. 13. The right ventricular systolic pressure, as measured by Doppler, is 13.14mmHg. 14. There is no pulmonic regurgitation present. 15. The aortic root size is normal. 16. The inferior vena cava was not well visualized. 17. There is no pericardial effusion. WRAPPER STRIPPER: Marilyn Asher RDCS
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
[2019-04-09 11:27] LABS: Cholesterol 216 mg/dL (<200); HDL Cholesterol 54 mg/dL (40-60); LDL Cholesterol,Calculated 132 mg/dL (0-99); Triglycerides 148 mg/dL (<150)
[2019-04-09 16:23] VITALS: RESP 18
[2019-04-09] MEDS ORDERED: ATORVASTATIN 80 MG TAB PO SCH (21:00)
[2019-04-09] MEDS ORDERED: ATORVASTATIN 40 MG TAB PO SCH (21:00)
[2019-04-09] MEDS: METOPROLOL TARTRATE 25 MG TAB PO SCH (21:14)
[2019-04-09] MEDS ORDERED: NAPROXEN 250 MG TAB PO PRN (21:31)
[2019-04-09] MEDS ORDERED: TEMAZEPAM 30 MG CAP PO PRN (21:31)
[2019-04-09] MEDS ORDERED: FAMOTIDINE 20 MG TAB PO PRN (21:31)
[2019-04-09] MEDS ORDERED: ALBUTEROL NEBULIZED 2.5 MG/3 ML INHALATION PRN (21:31)
[2019-04-09] MEDS ORDERED: IBUPROFEN 600 MG TAB PO PRN (21:31)
[2019-04-09] MEDS ORDERED: LORazepam 1 MG TAB PO PRN (22:45)
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
[2019-04-10] MEDS ORDERED: PANTOPRAZOLE 40 MG TABLET PO SCH (07:30)
[2019-04-10] MEDS ORDERED: SODIUM CHLORIDE 0.9% 1,000 ML in EMPTY BAG 1 BAG IV ONE (08:02)
[2019-04-10] MEDS ORDERED: ALPRAZolam 0.5 MG TAB PO PRN (08:02)
[2019-04-10] MEDS ORDERED: LIDOCAINE 1% INJ 10MG/ML (20 ML MDV) ONE (08:49)
[2019-04-10] MEDS ORDERED: VERAPAMIL 2.5 MG/ML 2 ML AMP ONE (08:49)
[2019-04-10] MEDS ORDERED: ASPIRIN 81 MG ONE (08:49)
[2019-04-10] MEDS ORDERED: HEPARIN SODIUM 1,000 UN/ML (10ML VL) ONE (08:49)
[2019-04-10] MEDS ORDERED: SODIUM CHLORIDE 0.9% 1,000 ML IV ONE (09:00)
[2019-04-10] MEDS ORDERED: DONEPEZIL 10 MG TAB PO SCH (09:00)
[2019-04-10] MEDS ORDERED: lamoTRIgine 100 MG TAB PO SCH (09:00)
[2019-04-10] MEDS ORDERED: ASPIRIN 81 MG PO SCH (09:00)
[2019-04-10] MEDS ORDERED: NON-FORMULARY DRUG (Linaclotide [Linzess] 145 MCG) PO SCH (09:00)
[2019-04-10] MEDS ORDERED: NON-FORMULARY DRUG (Mirabegron [Myrbetriq] 50 MG) PO SCH (09:00)
[2019-04-10] MEDS ORDERED: ASPIRIN 325 MG TAB PO SCH (09:00)
[2019-04-10] MEDS ORDERED: GLYCOPYRROLATE 1 MG TAB PO SCH (09:00)
[2019-04-10] MEDS ORDERED: CITALOPRAM HYDROBROMIDE 20 MG TAB PO SCH (09:00)
[2019-04-10] MEDS ORDERED: MIDAZOLAM (PF) 2 MG/2 ML VIAL IV ONE (09:04)
[2019-04-10] MEDS ORDERED: ASPIRIN 81 MG PO ONE (09:07)
[2019-04-10] MEDS ORDERED: LIDOCAINE 1% INJ 10MG/ML (20 ML MDV) SQ ONE (09:09)
[2019-04-10] MEDS ORDERED: VERAPAMIL SYRINGE (5 MG/10 ML) INTRAARTER ONE (09:11)
[2019-04-10] MEDS ORDERED: HEPARIN SODIUM 1,000 UN/ML (10ML VL) IV ONE (09:13)
[2019-04-10] MEDS ORDERED: IOPAMIDOL-370 125ML BTL INJ ONE (09:26)
[2019-04-10] MEDS ORDERED: RX INFO: IV CONTRAST WAS GIVEN 1 EACH MISC MISCELLANE PRN (09:31)
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
[2019-04-10] MEDS ORDERED: SODIUM CHLORIDE 0.9% 1,000 ML IV SCH (09:45)
[2019-04-10] MEDS: LOSARTAN 25 MG TAB PO SCH (09:50)
[2019-04-10] MEDS: METOPROLOL TARTRATE 25 MG TAB PO SCH (09:51)
[2019-04-10 09:52] VITALS: TEMP 97.6
--- NOTE | 2019-04-10 10:44 | CC ---
CARDIAC CATHETERIZATION REPORT DATE OF SERVICE: April 10, 2019 PERFORMING PHYSICIAN: Jay Vu MD, [place] man. PROCEDURE PERFORMED: 1. Selective right and left coronary angiogram. 2. Left heart catheterization. 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 Because of that, heart catheterization was advised. APPROACH: Right radial artery. COMPLICATION: None LEVEL OF SEDATION: Moderate with sedation length of 20 minutes. PROCEDURE DESCRIPTION: After obtaining an informed consent, the patient was brought to the cardiac kiln labourer. The right radial artery was cannulated using micropuncture technique, the micropuncture wire passed easily then I placed a 6-[place] Islander sheath in the right radial artery. After that, I did selective right and left coronary angiogram using JR4 and JL3.5 catheters. Before that I gave the patient 10,000 units of heparin IV. The procedure was completed without any complication. SELECTIVE CORONARY ANGIOGRAM: 1. The right coronary artery is a large caliber vessel and is a dominant vessel. The distal right appeared to have a lesion in the range of 50%. Then the right bifurcates into PDA and PLV branches both appeared to be angiographically . 2. The left main is angiographically normal. It bifurcates into left circumflex and left anterior descending artery. 3. The left circumflex is a large caliber vessel and it is a nondominant vessel. The proximal circumflex is normal and gives rise into a large OM branch which bifurcates into 2 subbranches. Both subbranches appeared to be angiographically normal and the left circumflex continues after that as a moderate caliber vessel in the AV groove. 4. The LAD is a large caliber vessel and appeared to be angiographically normal. It gives rise in the proximal portion into a large diagonal branch which seems to be angiographically normal. CONCLUSION: Intermediate disease involving the distal right coronary artery appeared to be in the range of 50%. POSTPROCEDURE MANAGEMENT: The patient can be discharged home. MMODL / IJN: [id number] /
[2019-04-10 12:01] VITALS: BP 139/80; PULSE 104
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
== END 2019-04-10 15:42 | disposition home or self-care (01) ==
LOC: EC 00:58 → 1SOBS 07:02
PROVIDERS: ADMIT Internal Medicine; ATTEND Internal Medicine
DX: I25.10 Atherosclerotic heart disease of native coronary artery without angina pectoris (principal); K21.9 Gastro-esophageal reflux disease without esophagitis; J44.9 Chronic obstructive pulmonary disease, unspecified; I10 Essential (primary) hypertension; R41.3 Other amnesia; M54.9 Dorsalgia, unspecified; E78.5 Hyperlipidemia, unspecified; F41.9 Anxiety disorder, unspecified; F32.9 Major depressive disorder, single episode, unspecified; G40.909 Epilepsy, unspecified, not intractable, without status epilepticus; G93.89 Other specified disorders of brain; H91.90 Unspecified hearing loss, unspecified ear; I42.9 Cardiomyopathy, unspecified; G47.33 Obstructive sleep apnea (adult) (pediatric); G89.29 Other chronic pain; Z91.19 Patient's noncompliance with other medical treatment and regimen; Z72.89 Other problems related to lifestyle; Z95.5 Presence of coronary angioplasty implant and graft; Z79.899 Other long term (current) drug therapy; Z79.2 Long term (current) use of antibiotics; Z79.82 Long term (current) use of aspirin; Z87.891 Personal history of nicotine dependence; Z98.890 Other specified postprocedural states; Z85.46 Personal history of malignant neoplasm of prostate; Z85.830 Personal history of malignant neoplasm of bone; Z82.49 Family history of ischemic heart disease and other diseases of the circulatory system
CPT/HCPCS: 93005 ×2; 99285; 36415; 93454; 85379; 80061; 80053; 83735; 84484; 85025; 85610; 85730; 71045; G0378 ×2; C8929; C1769 ×2; C1894; J2001; J1644; Q9950; Q9967; J2250; 93306

== ENCOUNTER 2019-04-26 06:05 | Emergency (ER) | payer MEDICARE, OTHER ==
[2019-04-26 06:15] VITALS: BP 162/88; PULSE 66; RESP 20; TEMP 98
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
== END 2019-04-26 07:44 | disposition home or self-care (01) ==
LOC: EC 06:05
DX: S46.212A Strain of muscle, fascia and tendon of other parts of biceps, left arm, initial encounter (principal); I25.10 Atherosclerotic heart disease of native coronary artery without angina pectoris; F32.9 Major depressive disorder, single episode, unspecified; F41.9 Anxiety disorder, unspecified; K21.9 Gastro-esophageal reflux disease without esophagitis; R41.3 Other amnesia; R56.9 Unspecified convulsions; I10 Essential (primary) hypertension; J44.9 Chronic obstructive pulmonary disease, unspecified; H91.93 Unspecified hearing loss, bilateral; Z79.82 Long term (current) use of aspirin; Z79.899 Other long term (current) drug therapy; Z95.5 Presence of coronary angioplasty implant and graft; Z85.46 Personal history of malignant neoplasm of prostate; Z87.891 Personal history of nicotine dependence; Z90.79 Acquired absence of other genital organ(s); Z92.3 Personal history of irradiation; Z87.828 Personal history of other (healed) physical injury and trauma; X58.XXXA Exposure to other specified factors, initial encounter
CPT/HCPCS: 99283

== ENCOUNTER 2021-04-25 | Inpatient (IN) | payer MEDICARE, OTHER | END 2021-04-28 15:31 | disposition home or self-care (01) | DRG 308 | PROVIDERS: ADMIT Hospitalist | DX: I48.0 Paroxysmal atrial fibrillation (principal); J18.9 Pneumonia, unspecified organism; I50.21 Acute systolic (congestive) heart failure; J44.0 Chronic obstructive pulmonary disease with (acute) lower respiratory infection; I11.0 Hypertensive heart disease with heart failure; Z20.822 Contact with and (suspected) exposure to COVID-19; F32.9 Major depressive disorder, single episode, unspecified; G40.909 Epilepsy, unspecified, not intractable, without status epilepticus; I25.10 Atherosclerotic heart disease of native coronary artery without angina pectoris; E78.5 Hyperlipidemia, unspecified; I08.1 Rheumatic disorders of both mitral and tricuspid valves; E66.9 Obesity, unspecified; H91.90 Unspecified hearing loss, unspecified ear; F41.9 Anxiety disorder, unspecified; Z79.82 Long term (current) use of aspirin; Z68.33 Body mass index [BMI] 33.0-33.9, adult; Z79.899 Other long term (current) drug therapy; Z92.3 Personal history of irradiation; Z85.46 Personal history of malignant neoplasm of prostate; Z95.5 Presence of coronary angioplasty implant and graft | CPT/HCPCS: 36415; 70450; 71045; 71046; 80048; 80053; 80175; 83735; 83880; 84145; 84443; 84484; 85025; 85610; 85730; 86140; 87635; 93005; 93306; 93970; 96374; 99285 ==

== ENCOUNTER 2021-05-18 08:35 | Inpatient (IN) | payer MEDICARE, OTHER ==
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
[2021-05-18 09:31] LABS: INR 1.1 (<1.2); Partial Thromboplastin Time 24.2 sec (22.0-30.0); Prothrombin Time 11.3 sec (9.0-12.0)
[2021-05-18 09:39] LABS: Albumin 4.1 g/dL (3.5-5.0); Calcium 9.2 mg/dL (8.4-10.2); Potassium 3.9 mmol/L (3.5-5.1); Total Bilirubin 0.3 mg/dL (0.2-1.3); Total Protein 6.4 g/dL (6.3-8.2)
[2021-05-18 09:45] LABS: Basophils % (A) 1 %; Eosinophils # (A) 0.2 k/uL (0-0.7); Eosinophils % (A) 4 %; HCT 37.5 % (39.0-53.0); HGB 11.5 gm/dL (13.0-17.5); Hypochromasia Marked; Lymphocytes # (A) 0.8 k/uL (1.0-4.8); Lymphocytes % (A) 16 %; MCH 23.9 pg (25.0-35.0); MCHC 30.6 g/dL (31.0-37.0); MCV 78.1 fL (80.0-100.0); Mean Platelet Volume 8.6; Monocytes # (A) 0.5 k/uL (0-1.0); Monocytes % (A) 10 %; Neutrophils # (A) 3.3 k/uL (1.3-7.7); Neutrophils % (A) 66 %; Platelet Count 219 k/uL (150-450); Poikilocytosis Slight; RBC 4.81 m/uL (4.30-5.90); RDW 14.5 % (11.5-15.5)
--- NOTE | 2021-05-18 10:55 | XR ---
EXAMINATION TYPE: XR chest 2V DATE OF EXAM: 05/18/2021 COMPARISON: 04/28/2021 HISTORY: Chest pain TECHNIQUE: Frontal and lateral views of the chest are obtained. FINDINGS: Patchy airspace disease bilaterally appears similar to the prior examination. Enlargement of the card iac silhouette is unchanged. IMPRESSION: No acute cardiopulmonary process.
[2021-05-18] MEDS ORDERED: diphenhydrAMINE 50 MG/ML 1 ML VIAL IVP STA (11:43)
[2021-05-18] MEDS ORDERED: METOCLOPRAMIDE 5 MG/ML 2 ML VIAL IVP STA (11:43)
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
--- NOTE | 2021-05-18 11:55 | CT ---
EXAMINATION TYPE: CT abdomen pelvis w con DATE OF EXAM: 05/18/2021 COMPARISON: 03/18/2019 HISTORY: Abdominal pain. CT DLP: 1462.2 mGycm CONTRAST: CT scan of the abdomen and pelvis is performed without Oral Contrast and with IV Contrast, patient in jected with 70 mL of Isovue 300. FINDINGS: LUNG BASES-: No visible nodule. No infiltrate. Large hiatal hernia noted. LIVER/GB: No calcified gallstones. No space occupying hepatic lesion. Biliary tree is of normal ca liber. PANCREAS: No inflammation. No distinct mass. SPLEEN: No splenic enlargement. No lesion seen. ADRENALS: No nodule. No thickening. KIDNEYS/BLADDER: No hydronephrosis. No nephrolithiasis. No distinct renal mass. Urinary bladder g rossly unremarkable. BOWEL: Normal appendix. Normal bowel caliber. No inflammation. GENITAL ORGANS: No gross abnormality. LYMPH NODES: No greater than 1cm abdominal or pelvic lymph nodes are appreciated. AORTA: No significant abnormality. OSSEOUS STRUCTURES: No significant abnormality is seen. OTHER: No significant additional abnormality is seen. IMPRESSION: 1. No acute process to account for the patient's symptoms.
[2021-05-18] MEDS ORDERED: NALOXONE 0.4 MG/ML 1 ML VIAL IV PRN (12:39)
[2021-05-18] MEDS: SODIUM CHLORIDE 0.9% 1,000 ML IV SCH (12:40)
[2021-05-18 13:25] LABS: Appearance,Urine Clear (Clear); Bilirubin,Urine Negative (Negative); Blood,Urine Negative (Negative); Color,Urine Yellow; Glucose,Urine (UA) Negative (Negative); Ketones,Urine Negative (Negative); Leukocyte Esterase,Urine Negative (Negative); Mucus,Urine Rare /hpf; Nitrite,Urine Negative (Negative); PH, Urine 5.5 (5.0-8.0); Protein,Urine 1+ (Negative); Specific Gravity,Urine 1.043 (1.001-1.035); Squamous Epithelial Cell,Urine <1 /hpf (0-4); Urobilinogen,Urine <2.0 mg/dL (<2.0); WBC,Urine <1 /hpf (0-5)
[2021-05-18] MEDS: METOPROLOL TARTRATE 25 MG TAB PO SCH ×2 (16:10→21:32)
[2021-05-18] MEDS: GABAPENTIN 100 MG CAP PO SCH ×2 (16:10→21:31)
[2021-05-18] MEDS: OXYBUTYNIN 10 MG TAB.ER.24 PO SCH (16:30)
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
[2021-05-18] MEDS: lamoTRIgine 100 MG TAB PO SCH (21:31)
[2021-05-18] MEDS: PANTOPRAZOLE 40 MG TABLET PO SCH (21:31)
[2021-05-18] MEDS: MEMANTINE 10 MG TAB PO SCH (21:31)
[2021-05-18] MEDS: DONEPEZIL 10 MG TAB PO SCH (21:32)
[2021-05-18] MEDS: APIXABAN 5 MG TAB PO SCH (21:32)
[2021-05-18] MEDS: ATORVASTATIN 40 MG TAB PO SCH (21:32)
[2021-05-19] MEDS: SODIUM CHLORIDE 0.9% 1,000 ML IV SCH ×2 (04:22→15:39)
[2021-05-19 06:10] LABS: Basophils % (A) 0 %; Eosinophils # (A) 0.2 k/uL (0-0.7); Eosinophils % (A) 4 %; HCT 32.7 % (39.0-53.0); HGB 10.7 gm/dL (13.0-17.5); Hypochromasia Moderate; Lymphocytes # (A) 0.8 k/uL (1.0-4.8); Lymphocytes % (A) 20 %; MCH 24.9 pg (25.0-35.0); MCHC 32.7 g/dL (31.0-37.0); MCV 76.2 fL (80.0-100.0); Mean Platelet Volume 8.3; Microcytosis Slight; Monocytes # (A) 0.3 k/uL (0-1.0); Monocytes % (A) 9 %; Neutrophils # (A) 2.5 k/uL (1.3-7.7); Neutrophils % (A) 64 %; Platelet Count 198 k/uL (150-450); Poikilocytosis Slight; RBC 4.29 m/uL (4.30-5.90); RDW 14.6 % (11.5-15.5); WBC 3.9 k/uL (3.8-10.6)
[2021-05-19] MEDS: ASPIRIN 81 MG PO SCH (08:32)
[2021-05-19] MEDS: CITALOPRAM HYDROBROMIDE 20 MG TAB PO SCH (08:32)
[2021-05-19] MEDS: SPIRONOLACTONE 25 MG TAB PO SCH (08:32)
[2021-05-19] MEDS: DONEPEZIL 10 MG TAB PO SCH ×2 (08:32→21:32)
[2021-05-19] MEDS: OXYBUTYNIN 10 MG TAB.ER.24 PO SCH (08:32)
[2021-05-19] MEDS: PANTOPRAZOLE 40 MG TABLET PO SCH (08:32)
[2021-05-19] MEDS: APIXABAN 5 MG TAB PO SCH ×2 (08:33→21:32)
[2021-05-19] MEDS: GABAPENTIN 100 MG CAP PO SCH ×3 (08:33→21:32)
[2021-05-19] MEDS: lamoTRIgine 100 MG TAB PO SCH ×2 (08:33→21:32)
[2021-05-19] MEDS: METOPROLOL TARTRATE 25 MG TAB PO SCH ×3 (08:34→21:32)
[2021-05-19] MEDS: LOSARTAN 25 MG TAB PO SCH (08:35)
[2021-05-19] MEDS: NON FORMULARY DRUG (Mirabegron [Myrbetriq] 50 MG Tab.Er.24h) PO SCH (08:59)
[2021-05-19] MEDS: NON FORMULARY DRUG (Linaclotide [Linzess] 145 MCG Capsule) PO SCH (08:59)
[2021-05-19 09:50] LABS: African American GFR (CKD) 69.1 (60.0-200.0); Anion Gap 5.9 mmol/L (4.00-12.00); BUN/Creat Ratio 19.17 Ratio (12.00-20.00); Calcium 8.4 mg/dL (8.7-10.3); Carbon Dioxide 26.1 mmol/L (21.6-31.8); Non-African American GFR(CKD) 59.6 (60.0-200.0); Potassium 4.5 mmol/L (3.5-5.5)
[2021-05-19] MEDS ORDERED: TEMAZEPAM 7.5 MG CAP PO PRN (11:13)
[2021-05-19] MEDS: MEMANTINE 10 MG TAB PO SCH ×2 (11:26→21:32)
--- NOTE | 2021-05-19 15:00 | XR ---
EXAMINATION TYPE: XR chest 1V portable DATE OF EXAM: 05/19/2021 COMPARISON: Chest x-ray 05/18/2021 HISTORY: Congestive heart failure TECHNIQUE: Single frontal view of the chest is obtained. FINDINGS: The heart remains enlarged. Retrocardiac density with lucency is consistent with hiatal he rnia and partial intrathoracic stomach. There are prominent epicardial fat pads. Mediastinum appears widened. Aorta is dense. IMPRESSION: Stable cardiomegaly, partial intrathoracic stomach
[2021-05-19] MEDS ORDERED: FUROSEMIDE 10 MG/ML 2 ML VIAL IV SCH (16:00)
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
[2021-05-19] MEDS: ATORVASTATIN 40 MG TAB PO SCH (21:32)
[2021-05-20 05:39] LABS: Basophils % (A) 0 %; Eosinophils # (A) 0.2 k/uL (0-0.7); Eosinophils % (A) 4 %; HCT 35.4 % (39.0-53.0); HGB 10.9 gm/dL (13.0-17.5); Hypochromasia Marked; Lymphocytes # (A) 1.2 k/uL (1.0-4.8); Lymphocytes % (A) 22 %; MCH 24.3 pg (25.0-35.0); MCHC 30.9 g/dL (31.0-37.0); MCV 78.7 fL (80.0-100.0); Mean Platelet Volume 8.3; Monocytes # (A) 0.7 k/uL (0-1.0); Monocytes % (A) 12 %; Neutrophils # (A) 3.2 k/uL (1.3-7.7); Neutrophils % (A) 58 %; Platelet Count 223 k/uL (150-450); RBC 4.49 m/uL (4.30-5.90); RDW 14.4 % (11.5-15.5); WBC 5.5 k/uL (3.8-10.6)
[2021-05-20 06:35] LABS: African American GFR (CKD) 72 (>60 ml/min/1.73 sqM); Anion Gap 9 mmol/L; Blood Urea Nitrogen 23 mg/dL (9-20); Calcium 9.5 mg/dL (8.4-10.2); Carbon Dioxide 23 mmol/L (22-30); Chloride 106 mmol/L (98-107); Glucose 95 mg/dL (74-99); Non-African American GFR(CKD) 63 (>60 ml/min/1.73 sqM); Potassium 4.5 mmol/L (3.5-5.1); Sodium 138 mmol/L (137-145)
[2021-05-20] MEDS ORDERED: FUROSEMIDE 10 MG/ML 2 ML VIAL IV SCH ×2 (08:00→16:00)
[2021-05-20] MEDS: DONEPEZIL 10 MG TAB PO SCH ×2 (08:59→21:35)
[2021-05-20] MEDS: GABAPENTIN 100 MG CAP PO SCH ×3 (08:59→21:36)
[2021-05-20] MEDS: SPIRONOLACTONE 25 MG TAB PO SCH (08:59)
[2021-05-20] MEDS: METOPROLOL TARTRATE 25 MG TAB PO SCH ×3 (09:00→21:35)
[2021-05-20] MEDS: OXYBUTYNIN 10 MG TAB.ER.24 PO SCH (09:00)
[2021-05-20] MEDS: PANTOPRAZOLE 40 MG TABLET PO SCH (09:00)
[2021-05-20] MEDS: MEMANTINE 10 MG TAB PO SCH ×2 (09:00→21:36)
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
[2021-05-20] MEDS: NON FORMULARY DRUG (Linaclotide [Linzess] 145 MCG Capsule) PO SCH (11:03)
[2021-05-20] MEDS: NON FORMULARY DRUG (Mirabegron [Myrbetriq] 50 MG Tab.Er.24h) PO SCH (11:18)
[2021-05-20] MEDS: ASPIRIN 81 MG PO SCH (12:18)
[2021-05-20] MEDS: CITALOPRAM HYDROBROMIDE 20 MG TAB PO SCH (12:18)
[2021-05-20] MEDS: LOSARTAN 25 MG TAB PO SCH (12:19)
[2021-05-20] MEDS: lamoTRIgine 100 MG TAB PO SCH ×2 (12:19→21:36)
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
[2021-05-20] MEDS ORDERED: NITROGLYCERIN SL TABS 0.4 MG TAB SUBLINGUAL PRN (15:08)
[2021-05-20] MEDS: FLUDROCORTISONE 0.1 MG TAB PO SCH (16:48)
[2021-05-20] MEDS ORDERED: ACETAMINOPHEN TAB 325 MG TAB PO PRN (18:03)
[2021-05-20] MEDS: SODIUM CHLORIDE 0.9% 1,000 ML IV SCH (18:10)
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
[2021-05-20] MEDS: ATORVASTATIN 40 MG TAB PO SCH (21:36)
[2021-05-20] MEDS ORDERED: SODIUM CHLORIDE 0.9% 1,000 ML in EMPTY BAG 1 BAG IV ONE (23:59)
[2021-05-21] MEDS ORDERED: ASPIRIN 325 MG TAB PO ONE (06:00)
[2021-05-21] MEDS ORDERED: ATORVASTATIN 80 MG TAB PO ONE (06:00)
[2021-05-21] MEDS: DONEPEZIL 10 MG TAB PO SCH ×2 (06:44→20:49)
[2021-05-21] MEDS: MEMANTINE 10 MG TAB PO SCH ×2 (06:44→20:49)
[2021-05-21] MEDS: LOSARTAN 25 MG TAB PO SCH (06:44)
[2021-05-21] MEDS: CITALOPRAM HYDROBROMIDE 20 MG TAB PO SCH (06:44)
[2021-05-21] MEDS: lamoTRIgine 100 MG TAB PO SCH ×2 (06:45→20:49)
[2021-05-21] MEDS: METOPROLOL TARTRATE 25 MG TAB PO SCH ×3 (06:45→20:49)
[2021-05-21] MEDS: OXYBUTYNIN 10 MG TAB.ER.24 PO SCH (06:45)
[2021-05-21] MEDS: PANTOPRAZOLE 40 MG TABLET PO SCH (06:45)
[2021-05-21] MEDS: GABAPENTIN 100 MG CAP PO SCH ×3 (06:45→20:49)
[2021-05-21] MEDS: FLUDROCORTISONE 0.1 MG TAB PO SCH (06:46)
[2021-05-21 06:53] LABS: Glucose,Whole Blood 95 mg/dL (75-99)
[2021-05-21] MEDS ORDERED: HEPARIN SODIUM,PORCINE 10,000 UNIT in SODIUM CHLORIDE 0.9% 1,000 ML IRRIGATION PRN (07:00)
[2021-05-21] MEDS ORDERED: HEPARIN SODIUM,PORCINE 2,500 UNIT in SODIUM CHLORIDE 0.9% 250 ML IRRIGATION PRN (07:00)
[2021-05-21 08:00] LABS: Calcium 9.3 mg/dL (8.4-10.2); Potassium 4.4 mmol/L (3.5-5.1)
[2021-05-21] MEDS: NON FORMULARY DRUG (Linaclotide [Linzess] 145 MCG Capsule) PO SCH (10:27)
[2021-05-21] MEDS: NON FORMULARY DRUG (Mirabegron [Myrbetriq] 50 MG Tab.Er.24h) PO SCH (10:27)
[2021-05-21] MEDS ORDERED: MIDAZOLAM 2 MG/2 ML VIAL IV ONE (10:36)
[2021-05-21] MEDS ORDERED: LIDOCAINE 1% INJ 10MG/ML (20 ML MDV) SQ ONE (10:36)
[2021-05-21] MEDS ORDERED: VERAPAMIL SYRINGE (5 MG/10 ML) INTRAARTER ONE (10:38)
[2021-05-21] MEDS ORDERED: IOPAMIDOL-370 125ML BTL INJ ONE (10:49)
[2021-05-21] MEDS ORDERED: IV FLUID CONTINUATION 1,000 ML IV ONE (10:50)
[2021-05-21] MEDS ORDERED: RX INFO: IV CONTRAST WAS GIVEN 1 EACH MISC MISCELLANE PRN (10:53)
[2021-05-21] MEDS ORDERED: SODIUM CHLORIDE 0.9% 1,000 ML IV SCH (11:00)
--- NOTE | 2021-05-21 12:21 | CC ---
CARDIAC CATHETERIZATION REPORT DATE OF SERVICE: May 21, 2021. PERFORMING PHYSICIAN: Jay Vu MD. PROCEDURE PERFORMED: Selective right and left coronary angiogram. INDICATION: Chest discomfort concerning for unstable angina. APPROACH: Right radial artery. COMPLICATION: None. LEVEL OF SEDATION: Moderate with sedation length of 13 minutes. PROCEDURE DESCRIPTION: After obtaining an informed consent, the patient was brought to the cardiac recyclable materials distributor. The right radial artery was cannulated using micropuncture technique and a micropuncture wire passed easily. Then I placed a 5-Urdu sheath in the right radial artery. I gave the patient 2 mg of verapamil IA and 10,000 units of heparin IV. Selective right and left coronary angiogram performed with JR4 and JL3.5 catheters. The procedure was completed without any complication. SELECTIVE CORONARY ANGIOGRAM: 1. The right coronary artery is a large caliber vessel it is a dominant vessel. The RCA distally has mild disease only and bifurcates into PDA and PLV branches both appeared to have mild disease only. 2. The left main is angiographically normal. Bifurcates into left circumflex and left anterior descending artery. 3. The left circumflex is a large caliber vessel. It is a nondominant vessel. The left circumflex is angiographically normal. It gives rise into the first and second obtuse marginal branches, both appeared to be angiographically normal. 4. The LAD is a large caliber vessel. It appeared to be angiographically normal. It gives rise into a diagonal branch which appeared to be angiographically normal. CONCLUSION: Mild nonobstructive coronary artery disease involving the RCA. POSTPROCEDURE MANAGEMENT: Medical treatment. MMODL / IJN: [id number] /
[2021-05-21] MEDS: SPIRONOLACTONE 25 MG TAB PO SCH (12:58)
[2021-05-21] MEDS: FUROSEMIDE 10 MG/ML 2 ML VIAL IV SCH (12:59)
[2021-05-21] MEDS: ATORVASTATIN 40 MG TAB PO SCH (20:49)
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
[2021-05-21] MEDS: SODIUM CHLORIDE 0.9% 1,000 ML IV SCH (22:46)
[2021-05-22] MEDS: SPIRONOLACTONE 25 MG TAB PO SCH (08:16)
[2021-05-22] MEDS: METOPROLOL TARTRATE 25 MG TAB PO SCH (08:16)
[2021-05-22] MEDS: CITALOPRAM HYDROBROMIDE 20 MG TAB PO SCH (08:16)
[2021-05-22] MEDS: MEMANTINE 10 MG TAB PO SCH (08:16)
[2021-05-22] MEDS: PANTOPRAZOLE 40 MG TABLET PO SCH (08:16)
[2021-05-22] MEDS: lamoTRIgine 100 MG TAB PO SCH (08:16)
[2021-05-22] MEDS: DONEPEZIL 10 MG TAB PO SCH (08:16)
[2021-05-22] MEDS: GABAPENTIN 100 MG CAP PO SCH (08:16)
[2021-05-22] MEDS: LOSARTAN 25 MG TAB PO SCH (08:16)
[2021-05-22] MEDS: FUROSEMIDE 10 MG/ML 2 ML VIAL IV SCH (08:17)
[2021-05-22] MEDS: FLUDROCORTISONE 0.1 MG TAB PO SCH (08:17)
[2021-05-22] MEDS: OXYBUTYNIN 10 MG TAB.ER.24 PO SCH (08:17)
[2021-05-22] MEDS: NON FORMULARY DRUG (Linaclotide [Linzess] 145 MCG Capsule) PO SCH (08:29)
[2021-05-22] MEDS: NON FORMULARY DRUG (Mirabegron [Myrbetriq] 50 MG Tab.Er.24h) PO SCH (08:29)
[2021-05-22 08:32] VITALS: TEMP 99
[2021-05-22] MEDS ORDERED: ASPIRIN 81 MG PO SCH (09:00)
[2021-05-22 11:50] VITALS: BP 132/72; PULSE 77; RESP 16
--- NOTE | 2021-05-22 12:59 | P.PN ---
Subjective Progress Note Date: 05/22/21 HISTORY OF PRESENT ILLNESS: Patient underwent cardiac catheterization yesterday revealing mild nonobstructive coronary artery disease involving RCA. Medical management was recommended. Patient examined this morning at the bedside. Patient denies chest pain or pressure. He denies short of breath. Vital signs are stable. PHYSICAL EXAM: VITAL SIGNS: Reviewed. GENERAL: Well-developed in no acute distress. NECK: Supple. No JVD or thyromegaly LUNGS: Respirations even and unlabored. Lungs essentially clear to auscultation bilaterally. HEART: Regular rate and rhythm. S1 and S2 heard. Systolic murmur. EXTREMITIES: Normal range of motion. No clubbing or cyanosis. Peripheral pulses intact. No lower extremity edema. Right radial cath site with pulse pr esent. ASSESSMENT: Exertional shortness of breath Acute on chronic systolic heart failure Mild nonobstructive coronary artery disease involving RCA Paroxysmal atrial fibrillation Mitral regurgitation Hypertension Hyperlipidemia COPD PLAN: Continue current cardiac medications Patient may be discharged home today from a cardiac standpoint Follow up outpatient Nurse practitioner note has been reviewed by physician. Signing provider agrees with the documented findings, assessment, and plan of care. Objective - Vital Signs Vital signs: Vital Signs Temp 99 F 05/22/21 08:10 Pulse 77 05/22/21 11:45 Resp 16 05/22/21 11:45 BP 132/72 05/22/21 11:45 Pulse Ox 98 05/22/21 11:45 Intake & Output 05/21/21 05/22/21 05/22/21 18:59 06:59 18:59 Intake Total 460 240 Balance 460 240 Weight 89.9 kg Intake: IV 100 Oral 360 240 Other: Voiding Method Toilet Toilet # Voids 1 - Labs CBC & Chem 7: 05/20/21 05:07 05/21/21 07:06
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
[2021-05-23] MEDS ORDERED: FUROSEMIDE 20 MG TAB PO SCH (09:00)
== END 2021-05-22 16:19 | disposition home or self-care (01) | DRG 286 ==
LOC: EC 08:35 → 5NMEDONC 12:39 → OBSVTOIN 05-20 08:15 → 3SCARD 05-20 19:04
PROVIDERS: ADMIT Hospitalist; ATTEND Hospitalist
PROC: B2111ZZ Fluoroscopy of Multiple Coronary Arteries using Low Osmolar Contrast (ICD-10-PCS; principal; 2021-05-21 07:30)
DX: I25.110 Atherosclerotic heart disease of native coronary artery with unstable angina pectoris (principal); N17.0 Acute kidney failure with tubular necrosis; I50.23 Acute on chronic systolic (congestive) heart failure; R51.9 Headache, unspecified; I48.0 Paroxysmal atrial fibrillation; J44.9 Chronic obstructive pulmonary disease, unspecified; Z79.01 Long term (current) use of anticoagulants; Z79.82 Long term (current) use of aspirin; E78.5 Hyperlipidemia, unspecified; G47.33 Obstructive sleep apnea (adult) (pediatric); Z82.49 Family history of ischemic heart disease and other diseases of the circulatory system; Z20.822 Contact with and (suspected) exposure to COVID-19; D50.9 Iron deficiency anemia, unspecified; K21.9 Gastro-esophageal reflux disease without esophagitis; F32.9 Major depressive disorder, single episode, unspecified; F41.9 Anxiety disorder, unspecified; I25.5 Ischemic cardiomyopathy; I95.1 Orthostatic hypotension; I11.0 Hypertensive heart disease with heart failure; Z87.820 Personal history of traumatic brain injury; H91.90 Unspecified hearing loss, unspecified ear; F03.90 Unspecified dementia, unspecified severity, without behavioral disturbance, psychotic disturbance, mood disturbance, and anxiety; V89.2XXS Person injured in unspecified motor-vehicle accident, traffic, sequela; I34.0 Nonrheumatic mitral (valve) insufficiency; G93.89 Other specified disorders of brain; G40.909 Epilepsy, unspecified, not intractable, without status epilepticus; I25.2 Old myocardial infarction; Z87.891 Personal history of nicotine dependence; Z95.5 Presence of coronary angioplasty implant and graft; Z85.46 Personal history of malignant neoplasm of prostate; Z79.899 Other long term (current) drug therapy
CPT/HCPCS: 36415; 70450; 71045; 71046; 74177; 80048; 80053; 81001; 83605; 83690; 83735; 83880; 84443; 84484; 85025; 85610; 85730; 87635; 93005; 93454; 99285

== ENCOUNTER 2021-06-29 08:44 | Inpatient (IN) | payer MEDICARE, OTHER ==
[2021-06-29] MEDS ORDERED: SODIUM CHLORIDE 0.9% 500 ML 500 ML IV STA (09:07)
[2021-06-29] MEDS ORDERED: DILTIAZEM DRIP BOLUS FROM BAG 1 MG SOLN IV ONE (09:08)
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
[2021-06-29] MEDS ORDERED: DILTIAZEM 125 MG in SODIUM CHLORIDE 0.9% 100 ML IV SCH (09:15)
[2021-06-29 10:00] LABS: Anisocytosis Slight; Basophils % (A) 0 %; Eosinophils # (A) 0.1 k/uL (0-0.7); Eosinophils % (A) 1 %; HCT 35.3 % (39.0-53.0); HGB 11.2 gm/dL (13.0-17.5); Hypochromasia Moderate; Lymphocytes # (A) 0.6 k/uL (1.0-4.8); Lymphocytes % (A) 5 %; MCH 24.6 pg (25.0-35.0); MCHC 31.9 g/dL (31.0-37.0); Mean Platelet Volume 8.9; Microcytosis Slight; Monocytes # (A) 0.9 k/uL (0-1.0); Monocytes % (A) 8 %; Neutrophils # (A) 9.1 k/uL (1.3-7.7); Neutrophils % (A) 83 %; Platelet Count 222 k/uL (150-450); RBC 4.58 m/uL (4.30-5.90); RDW 16.8 % (11.5-15.5); WBC 10.9 k/uL (3.8-10.6)
[2021-06-29 10:11] LABS: INR 1.2 (<1.2); Partial Thromboplastin Time 24.4 sec (22.0-30.0); Prothrombin Time 12.2 sec (9.0-12.0)
[2021-06-29 10:18] LABS: Albumin 4.3 g/dL (3.5-5.0); Calcium 9.6 mg/dL (8.4-10.2); Potassium 4.1 mmol/L (3.5-5.1); Total Bilirubin 0.7 mg/dL (0.2-1.3); Total Protein 6.6 g/dL (6.3-8.2)
[2021-06-29] MEDS ORDERED: methylPREDNISolone SOD SUCCI 125 MG/2 ML VIAL IV STA (10:32)
[2021-06-29] MEDS ORDERED: IPRATROPIUM-ALBUTEROL 3 ML NEB INHALATION STA (10:32)
[2021-06-29] MEDS ORDERED: ACETAMINOPHEN TAB 500 MG TAB PO STA (10:44)
--- NOTE | 2021-06-29 11:24 | XR ---
EXAMINATION TYPE: XR chest 2V DATE OF EXAM: 06/29/2021 COMPARISON: 05/19/2021 HISTORY: Shortness of breath TECHNIQUE: Frontal and lateral views of the chest are obtained. FINDINGS: Scattered senescent parenchymal changes noted. Hyperinflation compatible with COPD. No evidence for infiltrate. No evidence for atelectasis. Heart size is stable. Mediastinal structures are stable and grossly unremarkable. No evidence for hilar prominence. Degenerative changes dorsal spine. IMPRESSION: 1. No evidence for acute pulmonary disease.
[2021-06-29 12:03] LABS: Appearance,Urine Clear (Clear); Bilirubin,Urine Negative (Negative); Blood,Urine Small (Negative); Color,Urine Light Yellow; Glucose,Urine (UA) Negative (Negative); Ketones,Urine Negative (Negative); Leukocyte Esterase,Urine Negative (Negative); Mucus,Urine Rare /hpf; Nitrite,Urine Negative (Negative); Protein,Urine Negative (Negative); RBC,Urine 12 /hpf (0-5); Specific Gravity,Urine 1.008 (1.001-1.035); Urobilinogen,Urine <2.0 mg/dL (<2.0); WBC,Urine <1 /hpf (0-5)
[2021-06-29] MEDS ORDERED: NITROGLYCERIN SL TABS 0.4 MG TAB SUBLINGUAL PRN (12:41)
[2021-06-29] MEDS: SODIUM CHLORIDE 0.9% 1,000 ML IV SCH (13:04)
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
[2021-06-29] MEDS ORDERED: MELATONIN 3 MG TABLET PO PRN (14:17)
[2021-06-29] MEDS ORDERED: ACETAMINOPHEN TAB 325 MG TAB PO PRN (14:17)
[2021-06-29] MEDS ORDERED: NALOXONE 0.4 MG/ML 1 ML VIAL IV PRN (14:17)
[2021-06-29] MEDS ORDERED: HYDROcodone/APAP 5-325MG 1 EACH TAB PO PRN (14:17)
[2021-06-29] MEDS: GABAPENTIN 100 MG CAP PO SCH ×2 (16:41→21:28)
[2021-06-29] MEDS ORDERED: LORazepam 2 MG/ML INJ IV STA (18:39)
[2021-06-29] MEDS: ATORVASTATIN 40 MG TAB PO SCH (21:28)
[2021-06-29] MEDS: DONEPEZIL 10 MG TAB PO SCH (21:28)
[2021-06-29] MEDS: MEMANTINE 10 MG TAB PO SCH (21:28)
[2021-06-29] MEDS: APIXABAN 5 MG TAB PO SCH (21:28)
[2021-06-29] MEDS: lamoTRIgine 100 MG TAB PO SCH (21:28)
[2021-06-29] MEDS: PANTOPRAZOLE 40 MG TABLET PO SCH (21:28)
[2021-06-30] MEDS: LORazepam 2 MG/ML INJ IV PRN ×2 (00:45→12:35)
[2021-06-30] MEDS ORDERED: METOPROLOL TARTRATE 50 MG TAB PO STA ×2 (05:51→11:41)
[2021-06-30] MEDS: SODIUM CHLORIDE 0.9% 1,000 ML IV SCH ×2 (05:59→19:23)
[2021-06-30 08:44] LABS: Anisocytosis Slight; Basophils % (A) 0 %; Eosinophils % (A) 0 %; HCT 32.9 % (39.0-53.0); HGB 10.1 gm/dL (13.0-17.5); Hypochromasia Moderate; Lymphocytes # (A) 0.4 k/uL (1.0-4.8); Lymphocytes % (A) 4 %; MCH 24.1 pg (25.0-35.0); MCHC 30.8 g/dL (31.0-37.0); MCV 78.3 fL (80.0-100.0); Mean Platelet Volume 9.3; Microcytosis Slight; Monocytes # (A) 0.6 k/uL (0-1.0); Monocytes % (A) 7 %; Neutrophils # (A) 7.4 k/uL (1.3-7.7); Neutrophils % (A) 86 %; Platelet Count 224 k/uL (150-450); RDW 16.2 % (11.5-15.5); WBC 8.6 k/uL (3.8-10.6)
[2021-06-30] MEDS ORDERED: ASPIRIN 325 MG TAB PO SCH (09:00)
[2021-06-30] MEDS ORDERED: FUROSEMIDE 40 MG TAB PO SCH (09:00)
[2021-06-30] MEDS ORDERED: METOPROLOL TARTRATE 50 MG TAB PO SCH (09:00)
[2021-06-30 09:19] LABS: Calcium 9.1 mg/dL (8.4-10.2); Magnesium 2.1 mg/dL (1.6-2.3); Potassium 4.5 mmol/L (3.5-5.1); Total Bilirubin 0.4 mg/dL (0.2-1.3); Total Protein 6.4 g/dL (6.3-8.2)
[2021-06-30] MEDS: DONEPEZIL 10 MG TAB PO SCH ×2 (09:38→19:58)
[2021-06-30] MEDS: SPIRONOLACTONE 25 MG TAB PO SCH (09:38)
[2021-06-30] MEDS: LOSARTAN 25 MG TAB PO SCH (09:38)
[2021-06-30] MEDS: ASPIRIN 81 MG PO SCH (09:38)
[2021-06-30] MEDS: AZITHROMYCIN 500 MG TAB PO SCH (09:38)
[2021-06-30] MEDS: PANTOPRAZOLE 40 MG TABLET PO SCH ×2 (09:38→19:58)
[2021-06-30] MEDS: GABAPENTIN 100 MG CAP PO SCH ×3 (09:39→21:29)
[2021-06-30] MEDS: APIXABAN 5 MG TAB PO SCH ×2 (09:39→19:59)
[2021-06-30] MEDS: MEMANTINE 10 MG TAB PO SCH ×2 (09:39→19:59)
[2021-06-30] MEDS: CITALOPRAM HYDROBROMIDE 20 MG TAB PO SCH (09:39)
[2021-06-30] MEDS: lamoTRIgine 100 MG TAB PO SCH ×2 (09:39→19:59)
[2021-06-30] MEDS: OXYBUTYNIN 10 MG TAB.ER.24 PO SCH (09:40)
[2021-06-30] MEDS: FLUDROCORTISONE 0.1 MG TAB PO SCH (09:40)
[2021-06-30] MEDS: PATIENT'S OWN (Mirabegron [Myrbetriq] 50 MG Tab.Er.24h) PO SCH (09:40)
[2021-06-30] MEDS ORDERED: IPRATROPIUM-ALBUTEROL 3 ML NEB INHALATION STA (10:04)
[2021-06-30] MEDS: IPRATROPIUM-ALBUTEROL 3 ML NEB INHALATION SCH ×4 (10:57→23:53)
--- NOTE | 2021-06-30 11:34 | P.PN ---
Subjective Progress Note Date: 06/30/21 Pt appears to be in significant distress from dyspnea today, though is saturating well. PC is 0.06. Pt wheezing on exam. HRs are between 110-130. Objective - Vital Signs Vital signs: Vital Signs Temp 98.6 F 06/30/21 09:00 Pulse 85 06/30/21 11:04 Resp 20 06/30/21 09:00 BP 111/75 06/30/21 09:00 Pulse Ox 95 06/30/21 09:00 Intake & Output 06/29/21 06/30/21 06/30/21 18:59 06:59 18:59 Intake Total 100 240 Balance 100 240 Weight 90.718 kg Intake: Oral 100 240 Other: # Voids 1 1 - Exam Gen: awake, alert HEENT: normocephalic, atraumatic, good hearing acuity, moist mucous membranes Resp: diffuse wheezing throughout, L > R posterior crackles, no accessory muscle use CVS: good distal perfusion x 4, irregular rhythm, tachycardic, systolic murmur GI: soft, NTTP, ND : no SPT, no CVAT, singh catheter not present MSK: no pitting edema, no clubbing Neuro: non-focal, moving all extremities Psych: cooperative, euthymic mood - Labs CBC & Chem 7: 06/30/21 08:03 06/30/21 08:03 Labs: Abnormal Lab Results - Last 24 Hours (Table) 06/29/21 06/30/21 06/30/21 Range/Units 11:36 08:03 08:03 RBC 4.20 L (4.30-5.90) m/uL Hgb 10.1 L (13.0-17.5) gm/dL Hct 32.9 L (39.0-53.0) % MCV 78.3 L (80.0-100.0) fL MCH 24.1 L (25.0-35.0) pg MCHC 30.8 L (31.0-37.0) g/dL RDW 16.2 H (11.5-15.5) % Lymphocytes # 0.4 L (1.0-4.8) k/uL Sodium 135 L (137-145) mmol/L Carbon Dioxide 20 L (22-30) mmol/L BUN 35 H (9-20) mg/dL Creatinine 1.45 H (0.66-1.25) mg/dL Glucose 154 H (74-99) mg/dL Alkaline Phosphatase 128 H (38-126) U/L Urine Blood Small H (Negative) Urine RBC 12 H (0-5) /hpf Urine Mucus Rare H (None) /hpf Assessment and Plan Assessment: Asthma Exacerbation Fevers -IV antibiotics: Rocephin and azithromycin to be administered pending further results. -Oxygenation to be administered and titrated as needed to maintain SPO2 equal to or greater than 92% -duonebs q4h -solumedrol 125mg q6h Paroxysmal Atrial fibrillation with RVR Chronic Systolic Heart Failure with moderately impaired ejection fraction of 35- 40% -Cardiology consult -Telemetry monitoring -Discontinue Cardizem and place patient on daily Lopressor 100 mg twice a day as well as Lopressor 5 mg IVP as needed for sustained ventricular rate greater than 120. -Daily weights -Close monitoring of I's and O's -Cardiac diet -Lasix IV 40mg (Home dose is 40mg PO) -Aspirin, atorvastatin, and metoprolol -Continued close monitoring of electrolytes while diuresing. -Continue anticoagulation with Eliquis. Other Chronic conditions including: Hypertension, hyperlipidemia, and closed head injury with seizure disorder -Continue daily medication regimen The patient is admitted with an anticipated greater than 2 midnight stay for evaluation of atrial fibrillation with RVR and fever CODE STATUS: Full code DVT prophylaxis: Eliquis Discussed with: Patient and RN Anticipated discharge date: Clinical course to determine Anticipated discharge place: Home
[2021-06-30] MEDS: FUROSEMIDE 10 MG/ML 4 ML VIAL IV SCH (11:57)
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
[2021-06-30] MEDS: methylPREDNISolone SOD SUCCI 125 MG/2 ML VIAL IV SCH ×2 (17:07→23:46)
[2021-06-30] MEDS: ATORVASTATIN 40 MG TAB PO SCH (19:58)
[2021-06-30] MEDS: METOPROLOL TARTRATE 50 MG TAB PO SCH (19:59)
[2021-06-30] MEDS: METOPROLOL TARTRATE 5 MG/5 ML VIAL IVP PRN (23:46)
[2021-07-01] MEDS: IPRATROPIUM-ALBUTEROL 3 ML NEB INHALATION SCH ×5 (03:47→20:31)
[2021-07-01] MEDS: LORazepam 2 MG/ML INJ IV PRN (03:51)
[2021-07-01] MEDS: methylPREDNISolone SOD SUCCI 125 MG/2 ML VIAL IV SCH (05:42)
[2021-07-01] MEDS: METOPROLOL TARTRATE 5 MG/5 ML VIAL IVP PRN (05:42)
[2021-07-01] MEDS: SODIUM CHLORIDE 0.9% 1,000 ML IV SCH ×2 (07:04→15:43)
[2021-07-01] MEDS: AZITHROMYCIN 500 MG TAB PO SCH (08:43)
[2021-07-01] MEDS: APIXABAN 5 MG TAB PO SCH ×2 (08:43→20:53)
[2021-07-01] MEDS: PANTOPRAZOLE 40 MG TABLET PO SCH ×2 (08:43→20:53)
[2021-07-01] MEDS: GABAPENTIN 100 MG CAP PO SCH (08:43)
[2021-07-01] MEDS: FLUDROCORTISONE 0.1 MG TAB PO SCH (08:46)
[2021-07-01] MEDS: lamoTRIgine 100 MG TAB PO SCH ×2 (08:46→20:53)
[2021-07-01] MEDS: METOPROLOL TARTRATE 50 MG TAB PO SCH ×2 (08:46→20:53)
[2021-07-01] MEDS: LOSARTAN 25 MG TAB PO SCH (08:46)
[2021-07-01] MEDS: SPIRONOLACTONE 25 MG TAB PO SCH (08:46)
[2021-07-01] MEDS: MEMANTINE 10 MG TAB PO SCH (08:46)
[2021-07-01] MEDS: DONEPEZIL 10 MG TAB PO SCH (08:46)
[2021-07-01] MEDS: OXYBUTYNIN 10 MG TAB.ER.24 PO SCH (08:46)
[2021-07-01] MEDS: CITALOPRAM HYDROBROMIDE 20 MG TAB PO SCH (08:46)
[2021-07-01] MEDS: FUROSEMIDE 10 MG/ML 4 ML VIAL IV SCH ×2 (08:47→20:53)
[2021-07-01] MEDS: PATIENT'S OWN (Mirabegron [Myrbetriq] 50 MG Tab.Er.24h) PO SCH (08:47)
[2021-07-01] MEDS: ASPIRIN 81 MG PO SCH (08:47)
[2021-07-01 09:41] LABS: Anisocytosis Slight; Basophils % (A) 0 %; Eosinophils % (A) 0 %; HCT 33.9 % (39.0-53.0); HGB 10.6 gm/dL (13.0-17.5); Hypochromasia Marked; Lymphocytes # (A) 0.4 k/uL (1.0-4.8); Lymphocytes % (A) 4 %; MCH 24.8 pg (25.0-35.0); MCHC 31.1 g/dL (31.0-37.0); MCV 79.6 fL (80.0-100.0); Mean Platelet Volume 9.5; Monocytes # (A) 0.5 k/uL (0-1.0); Monocytes % (A) 6 %; Neutrophils # (A) 8.6 k/uL (1.3-7.7); Neutrophils % (A) 89 %; Platelet Count 256 k/uL (150-450); RBC 4.26 m/uL (4.30-5.90); RDW 16.5 % (11.5-15.5); WBC 9.7 k/uL (3.8-10.6)
[2021-07-01 10:02] LABS: Calcium 9.5 mg/dL (8.4-10.2); Magnesium 2.1 mg/dL (1.6-2.3); Potassium 4.4 mmol/L (3.5-5.1)
[2021-07-01 12:09] LABS: Glucose,Whole Blood 140 mg/dL (75-99)
--- NOTE | 2021-07-01 13:39 | CDI ---
Documentation Clarification Form Date: 07/01/2021 01:02:43 PM From: Kiesha Chaudhry RN CCDS Admit Date: 06/29/2021 01:24:00 PM Patient Name: Jesús Roy Visit Number: [id number] Discharge Date: ATTENTION: The Clinical Documentation Specialists (CDI) and [facility] Coding Staff appreciate your assistance in clarifying documentation. Please respond to the clarification below the line at the bottom and electronically sign. The CDI & [facility] Coding staff will review the response and follow-up if needed. Please note: Queries are made part of the Legal Health Record. If you have any questions, please contact the author of this message via ITS. Dr. Ellen Stinson Pneumonia is documented H&P, 06/29, but is not noted in subsequent documentation. Clarification is requested. History/Risk Factors: 71-year-old male presents to the ED for shortness of breath and congested cough. Medical History: CAD, COPD, CHF and HTN. 06/29, H&P. Clinical Indicators: Fever believed to be secondary to community-acquired pneumonia. 06/29, H&P. CXR: 06/29 No evidence for acute pulmonary disease. Treatment: 06/30 Duoneb 0.5mg/3ml Soln x 1. 06/30 to current Duoneb 0.5mg/3ml Soln Q4H GIOVANNY. 06/30 to current Zithromax 500mg PO Daily GIOVANNY. 06/30 Ceftriaxone Sodium 2gm IVPB x 1. 06/30 d/c 06/30 Ceftriaxone Sodium 1gm IVPB Q24HR GIOVANNY. Please clarify if the Pneumonia is: [ ] Pneumonia confirmed, remains under treatment [ ] Pneumonia confirmed, resolved [ ] Pneumonia ruled out [ ] Other condition, please specify [ ] Unable to determine (Template Last Revised: January 2021) Pneumonia ruled out MTDD
--- NOTE | 2021-07-01 13:50 | P.PN ---
Subjective Progress Note Date: 07/01/21 HISTORY OF PRESENT ILLNESS: This is a 71-year-old male with a past medical history significant for coronary artery disease, atrial fibrillation, congestive heart failure, and cardiom yopathy. Patient follows in the office with Dr. Vu. We have been asked to see the patient in consultation for Shan german with RVR. Patient examined at the bedside. Patient presented to the hospital secondary to increasing shortness of breath over the past few days. He denies chest pain or pressure. He denies dizziness or lightheadedness. He denies palpitations. EKG reveals atrial fibrillation with RVR Chest xray no evidence for acute pulmonary disease Laboratory data: WBC 8.6. Hemoglobin 10.1. Platelet count 224. Sodium 135. Potassium 4.5. BUN 35. Creatinine 1.45. Troponin negative 3 Current home cardiac medications include Aldactone 12.5 mg daily, metoprolol tartrate 100 mg daily, losartan 25 mg daily, Lasix 40 mg daily, Florinef 0.1 mg daily, Lipitor 40 mg daily, aspirin 81 mg daily, and Eliquis 5 mg twice a day Most recent echocardiogram obtained in April 2021 revealed ejection fraction 35- 40%, moderate to severe mitral regurgitation and mild tricuspid regurgitation Cardiac catheterization history: 05/21/[address] Vu revealing mild nonobstructive coronary artery disease involving the RCA 07/01/2021 Patient examined this morning at the bedside. Patient denies chest pain or pressure. He denies shortness of breath. Telemetry reveals atrial fibrillation with controlled ventricular rates in the 90s. PHYSICAL EXAM: VITAL SIGNS: Reviewed. GENERAL: Well-developed in no acute distress. HEENT: Head is normocephalic. Pupils are equal, round. Sclerae anicteric. Mucous membranes of the mouth are moist. Neck supple. No JVD or thyromegaly LUNGS: Respirations even and unlabored. Lungs diminished bilaterally with rhonchi noted. HEART: Regular rate and rhythm. S1 and S2 heard. Systolic murmur noted. ABDOMEN: Soft. Nondistended. Nontender. EXTREMITIES: Normal range of motion. No clubbing or cyanosis. Peripheral pulses intact. No lower extremity edema NEUROLOGIC: Awake and alert. Oriented x 3. ASSESSMENT: Acute hypoxic respiratory failure, possible asthma/COPD exacerbation Paroxysmal atrial fibrillation, on anticoagulation with Eliquis Mild nonobstructive coronary artery disease Chronic systolic heart failure Ischemic cardiomyopathy Hypertension Hyperlipidemia COPD PLAN: No need to repeat echocardiogram if this was performed in April 2021 Continue metoprolol to 100 mg twice a day Continue anticoagulation with Eliquis Continue telemetry monitoring Further recommendations pending patient's course Nurse practitioner note has been reviewed by physician. Signing provider agrees with the documented findings, assessment, and plan of care. Objective - Vital Signs Vital signs: Vital Signs Temp 97.7 F 07/01/21 08:00 Pulse 95 07/01/21 12:00 Resp 20 07/01/21 12:00 BP 120/75 07/01/21 12:00 Pulse Ox 97 07/01/21 12:00 Intake & Output 06/30/21 07/01/21 07/01/21 18:59 06:59 18:59 Intake Total 1310 560 Balance 1310 560 Weight 89.7 kg Intake: Intake, IV Titration 750 Amount Sodium Chloride 0.9% 1, 600 000 ml @ 75 mls/hr IV . [id number] GIOVANNY Rx#:[id number] cefTRIAXone 1 gm In 50 Sodium Chloride 0.9% 50 ml @ 100 mls/hr IVPB Q24HR GIOVANNY Rx#:[id number] methylPREDNISolone SOD 100 SUCC 125 mg In Sodium Chloride 0.9% 100 ml @ 100 mls/hr IVPB Q6HR GIOVANNY Rx#:[id number] Oral 560 560 Other: # Voids 1 4 - Labs CBC & Chem 7: 07/01/21 09:15 07/01/21 09:15 Labs: Abnormal Lab Results - Last 24 Hours (Table) 07/01/21 07/01/21 07/01/21 Range/Units 09:15 09:15 12:07 RBC 4.26 L (4.30-5.90) m/uL Hgb 10.6 L (13.0-17.5) gm/dL Hct 33.9 L (39.0-53.0) % MCV 79.6 L (80.0-100.0) fL MCH 24.8 L (25.0-35.0) pg RDW 16.5 H (11.5-15.5) % Neutrophils # 8.6 H (1.3-7.7) k/uL Lymphocytes # 0.4 L (1.0-4.8) k/uL Sodium 133 L (137-145) mmol/L Carbon Dioxide 18 L (22-30) mmol/L BUN 48 H (9-20) mg/dL Creatinine 1.94 H (0.66-1.25) mg/dL Glucose 284 H (74-99) mg/dL POC Glucose (mg/dL) 140 H (75-99) mg/dL Microbiology - Last 24 Hours (Table) 06/29/21 12:40 Blood Culture - Preliminary Blood No Growth after 24 hours 06/29/21 13:00 Blood Culture - Preliminary Blood No Growth after 24 hours
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
[2021-07-01] MEDS: ATORVASTATIN 40 MG TAB PO SCH (20:53)
[2021-07-02] MEDS: IPRATROPIUM-ALBUTEROL 3 ML NEB INHALATION SCH ×4 (00:27→12:52)
[2021-07-02 07:35] LABS: Anisocytosis Slight; Basophils % (A) 0 %; Eosinophils % (A) 0 %; HCT 31.8 % (39.0-53.0); HGB 10.2 gm/dL (13.0-17.5); Hypochromasia Moderate; Lymphocytes # (A) 0.4 k/uL (1.0-4.8); Lymphocytes % (A) 5 %; MCH 24.8 pg (25.0-35.0); MCHC 32.2 g/dL (31.0-37.0); MCV 77.1 fL (80.0-100.0); Mean Platelet Volume 8.9; Microcytosis Slight; Monocytes # (A) 0.7 k/uL (0-1.0); Monocytes % (A) 8 %; Neutrophils # (A) 7.3 k/uL (1.3-7.7); Neutrophils % (A) 85 %; Platelet Count 225 k/uL (150-450); RBC 4.12 m/uL (4.30-5.90); RDW 16.6 % (11.5-15.5); WBC 8.6 k/uL (3.8-10.6)
[2021-07-02 07:46] LABS: Magnesium 2.1 mg/dL (1.6-2.3); Potassium 3.8 mmol/L (3.5-5.1)
[2021-07-02] MEDS ORDERED: CITALOPRAM HYDROBROMIDE 10 MG TAB PO SCH (09:00)
[2021-07-02] MEDS: FUROSEMIDE 10 MG/ML 4 ML VIAL IV SCH (09:51)
[2021-07-02] MEDS: AZITHROMYCIN 500 MG TAB PO SCH (09:52)
[2021-07-02] MEDS: APIXABAN 5 MG TAB PO SCH (09:52)
[2021-07-02] MEDS: LOSARTAN 25 MG TAB PO SCH (09:52)
[2021-07-02] MEDS: SPIRONOLACTONE 25 MG TAB PO SCH (09:52)
[2021-07-02] MEDS: ASPIRIN 81 MG PO SCH (09:52)
[2021-07-02] MEDS: lamoTRIgine 100 MG TAB PO SCH (09:52)
[2021-07-02] MEDS: PANTOPRAZOLE 40 MG TABLET PO SCH (09:52)
[2021-07-02] MEDS: METOPROLOL TARTRATE 50 MG TAB PO SCH (09:52)
[2021-07-02] MEDS: FLUDROCORTISONE 0.1 MG TAB PO SCH (09:52)
[2021-07-02] MEDS: PATIENT'S OWN (Mirabegron [Myrbetriq] 50 MG Tab.Er.24h) PO SCH (09:53)
[2021-07-02] MEDS: SODIUM CHLORIDE 0.9% 1,000 ML IV SCH (09:53)
[2021-07-02] MEDS: OXYBUTYNIN 10 MG TAB.ER.24 PO SCH (09:53)
[2021-07-02 09:59] VITALS: RESP 20; TEMP 96.9
[2021-07-02 12:26] VITALS: BP 115/88
[2021-07-02 13:01] VITALS: PULSE 88
--- NOTE | 2021-07-02 13:31 | P.PN ---
Progress Note - Text Progress Note Date: 07/02/21 Interval History: Patient was seen resting in bed and was directable and agreeable to speak with the internal communications writer. Use of the [employer] congressional assistant for the patient to translate as the patient's primary language is [place]an. Bernice ([id number]) translated. The patient is denying any suicidal or homicidal ideation, intention, and/or plan. He is denying any auditory or visual hallucinations. Denies any paranoid delusions. The patient does state that he is particularly interested in history and although he went to training he was not actively participating in [facility]. He does express that he has nightmares that are very vivid at night and cause him to act out his dreams. This caused him to sleep in separate beds from his . The patient states that he has not had a good night's sleep in many years. Despite this, the patient is not wanting to try any new medication for sleep at this time. The patient has otherwise been tolerating his medication reduction well. He does express frustration at the number of medications that he has been prescribed to take. He is willing to continue with a more simplified regimen. Mental Status Exam: General Appearance: Patient appears to be stated age is alert, directable, and cooperative. Patient is not wearing any parents. Obese body habitus. Behavior: Patient is calmly seated without any agitated behavior. Normal psychomotor activity. Eye contact is appropriate Speech: Patient's speech is fluent and nonpressured. Spontaneous with normal rate, tone, volume, and fluency. Patient is speaking [place]an. Mood/Affect: Mood is improving mildly, affect is congruent and euthymic with appropriate range. Suicidality/Homicidality: Patient denies having any suicidal or homicidal ideation intent or plan. Perceptions: Patient denies any visual hallucinations and denies any auditory hallucinations Though content/process: There is no evidence of any delusional thought content and thought process is linear and goal-directed. Memory and concentration: AOX3, grossly intact for the purposes of this session Judgment and insight: Improving mildly Vital Signs Temp 96.9 F L 07/02/21 08:00 Pulse 88 07/02/21 13:00 Resp 20 07/02/21 08:00 BP 115/88 07/02/21 12:00 Pulse Ox 96 07/02/21 12:00 Intake & Output 0807/02/21 07/02/21 18:59 06:59 18:59 Intake Total 1040 300 240 Output Total 250 Balance 1040 50 240 Weight 89.9 kg Intake: Oral 1040 300 240 Output: Urine 250 Other: # Voids 1 3 Laboratory Results - Last 24 Hours 07/02/21 07/02/21 07:02 07:02 WBC 8.6 RBC 4.12 L Hgb 10.2 L Hct 31.8 L MCV 77.1 L MCH 24.8 L MCHC 32.2 RDW 16.6 H Plt Count 225 MPV 8.9 Neutrophils % 85 Lymphocytes % 5 Monocytes % 8 Eosinophils % 0 Basophils % 0 Neutrophils # 7.3 Lymphocytes # 0.4 L Monocytes # 0.7 Eosinophils # 0.0 Basophils # 0.0 Hypochromasia Moderate Anisocytosis Slight Microcytosis Slight Sodium 138 Potassium 3.8 Chloride 103 Carbon Dioxide 26 Anion Gap 9 BUN 48 H Creatinine 1.71 H Est GFR (CKD-EPI)AfAm 45 Est GFR (CKD-EPI)NonAf 39 Glucose 118 H Calcium 9.0 Magnesium 2.1 Assessment Altered Mental Status, resolved Mood disorder, unspecified - likely secondary to steroid use Rule out major neurocognitive disorder Depression, as per history PLAN: -At this time patient DOES NOT meet criteria for inpatient psychiatric admission. The patient is alert and oriented in all spheres. He is not endorsing any suicidal or homicidal ideation, intention, and/or plan. He reports no imminent risk of harm to self or others. -Delirium precautions recommended with patient including - avoiding use of narcotics and COMMERCIAL PROPERTY ADMINISTRATOR sedatives, limit anticholinergic medications when possible, frequent re-orientation, minimize use of restraints, open window shades during the day and close them at night -Would recommend the following medication changes/additions: Continue Celexa 10 mg by mouth daily for depression/anxiety -Patient is cleared psychiatrically for discharge. Psychiatry will sign off at this time. Recommend outpatient psychiatric follow-up and/or referral to outpatient psychiatric and therapy services.
--- NOTE | 2021-07-02 13:37 | P.PN ---
Subjective Progress Note Date: 07/02/21 HISTORY OF PRESENT ILLNESS: This is a 71-year-old male with a past medical history significant for coronary artery disease, atrial fibrillation, congestive heart failure, and cardiom yopathy. Patient follows in the office with Dr. Vu. We have been asked to see the patient in consultation for Shan german with RVR. Patient examined at the bedside. Patient presented to the hospital secondary to increasing shortness of breath over the past few days. He denies chest pain or pressure. He denies dizziness or lightheadedness. He denies palpitations. EKG reveals atrial fibrillation with RVR Chest xray no evidence for acute pulmonary disease Laboratory data: WBC 8.6. Hemoglobin 10.1. Platelet count 224. Sodium 135. Potassium 4.5. BUN 35. Creatinine 1.45. Troponin negative 3 Current home cardiac medications include Aldactone 12.5 mg daily, metoprolol tartrate 100 mg daily, losartan 25 mg daily, Lasix 40 mg daily, Florinef 0.1 mg daily, Lipitor 40 mg daily, aspirin 81 mg daily, and Eliquis 5 mg twice a day Most recent echocardiogram obtained in April 2021 revealed ejection fraction 35- 40%, moderate to severe mitral regurgitation and mild tricuspid regurgitation Cardiac catheterization history: 05/21/[address] Vu revealing mild nonobstructive coronary artery disease involving the RCA 07/01/2021 Patient examined this morning at the bedside. Patient denies chest pain or pressure. He denies shortness of breath. Telemetry reveals atrial fibrillation with controlled ventricular rates in the 90s. 07/02/2021 Patient examined this morning at the bedside. Denies chest pain or pressure. Denies SOB. Blood pressure 115/88. Telemetry reveals atrial fibrillation with controlled ventricular rate. PHYSICAL EXAM: VITAL SIGNS: Reviewed. GENERAL: Well-developed in no acute distress. HEENT: Head is normocephalic. Pupils are equal, round. Sclerae anicteric. Mucous membranes of the mouth are moist. Neck supple. No JVD or thyromegaly LUNGS: Respirations even and unlabored. Lungs diminished bilaterally with rhonchi noted. HEART: Irregular rate and rhythm. S1 and S2 heard. Systolic murmur noted. ABDOMEN: Soft. Nondistended. Nontender. EXTREMITIES: Normal range of motion. No clubbing or cyanosis. Peripheral pulses intact. No lower extremity edema NEUROLOGIC: Awake and alert. Oriented x 3. ASSESSMENT: Acute hypoxic respiratory failure, possible asthma/COPD exacerbation Paroxysmal atrial fibrillation, on anticoagulation with Eliquis Mild nonobstructive coronary artery disease Chronic systolic heart failure Ischemic cardiomyopathy Hypertension Hyperlipidemia COPD PLAN: Continue metoprolol 100 mg twice a day Continue anticoagulation with Eliquis Continue telemetry monitoring Further recommendations pending patient's course Nurse practitioner note has been reviewed by physician. Signing provider agrees with the documented findings, assessment, and plan of care. Objective - Vital Signs Vital signs: Vital Signs Temp 96.9 F L 07/02/21 08:00 Pulse 88 07/02/21 13:00 Resp 20 07/02/21 08:00 BP 115/88 07/02/21 12:00 Pulse Ox 96 07/02/21 12:00 Intake & Output 07/01/21 07/02/21 07/02/21 18:59 06:59 18:59 Intake Total 1040 300 240 Output Total 250 Balance 1040 50 240 Weight 89.9 kg Intake: Oral 1040 300 240 Output: Urine 250 Other: # Voids 1 3 - Labs CBC & Chem 7: 07/02/21 07:02 07/02/21 07:02 Labs: Abnormal Lab Results - Last 24 Hours (Table) 07/02/21 07/02/21 Range/Units 07:02 07:02 RBC 4.12 L (4.30-5.90) m/uL Hgb 10.2 L (13.0-17.5) gm/dL Hct 31.8 L (39.0-53.0) % MCV 77.1 L (80.0-100.0) fL MCH 24.8 L (25.0-35.0) pg RDW 16.6 H (11.5-15.5) % Lymphocytes # 0.4 L (1.0-4.8) k/uL BUN 48 H (9-20) mg/dL Creatinine 1.71 H (0.66-1.25) mg/dL Glucose 118 H (74-99) mg/dL Microbiology - Last 24 Hours (Table) 06/29/21 12:40 Blood Culture - Preliminary Blood No Growth after 48 hours 06/29/21 13:00 Blood Culture - Preliminary Blood No Growth after 48 hours
--- NOTE | 2021-07-02 13:57 | P.DS ---
Providers Date of admission: 06/29/21 13:24 Expected date of discharge: 07/02/21 Attending physician: Ellen Stinson MD Consults: 06/29/21 12:41 Consult Physician Urgent Consulting Provider: Jessie Guadarrama Consult Reason/Comments: afib RVR Do you want consulting provider notified?: Yes 06/30/21 12:41 Consult Physician Routine Consulting Provider: Femi Holly Consult Reason/Comments: mood changes Do you want consulting provider notified?: Yes Primary care physician: [facility] Course: Paroxysmal Atrial fibrillation with RVR Acute on Chronic Systolic Heart Failure with moderately impaired ejection fraction of 35-40% Patient admitted for dyspnea on exertion and A Fib with RVR. He was found to be volume overloaded and treated with IV diuretics. Cardiology was consulted for A Fib and recommended increasing patient's metoprolol. Patient improved to baseline after 3 days of treatment. Fevers Psychosis Patient had incidental finding of fever on admission and was started on ceftriaxone/azithromycin. However, labwork noted to have negtaive PC and CXR without consolidation. Therefore, ceftriaxone was d/c'd. CXR demonstrated hyperinflated airways c/w COPD, patient was tx briefly with steroids and nebulizers, hwoever, developed psychosis and steroids were d/c'd. Psychiatry was called and recommended d/c polypharmacy and patient's namenda, aricept, and ALYSHA were stopped. Celexa continued. Pt d/c'd home with outpatient therapist f/u and with ativan PRN for episodes of psychosis. I spent 40 minutes coordinating this complex discharge. Assessment: Gen: awake, alert HEENT: normocephalic, atraumatic, good hearing acuity, moist mucous membranes Resp: diffuse wheezing throughout, L > R posterior crackles, no accessory muscle use CVS: good distal perfusion x 4, irregular rhythm, tachycardic, systolic murmur GI: soft, NTTP, ND : no SPT, no CVAT, singh catheter not present MSK: no pitting edema, no clubbing Neuro: non-focal, moving all extremities Psych: cooperative, excited mood, hyperverbal, tangential, +hallucinations Patient Condition at Discharge: Good Plan - Discharge Summary Discharge Rx Participant: No New Discharge Prescriptions: New LORazepam [Ativan] 1 mg PO Q4H PRN 3 Days #18 tab PRN Reason: Agitation Or Acute Psychosis Continue Mirabegron [Myrbetriq] 50 mg PO DAILY Losartan Potassium [Cozaar] 25 mg PO DAILY Linaclotide [Linzess] 145 mcg PO DAILY Citalopram Hydrobromide [Citalopram HBr] 20 mg PO DAILY Oxybutynin Chloride [Oxybutynin Chloride ER] 10 mg PO DAILY Omeprazole 20 mg PO BID Atorvastatin [Lipitor] 40 mg PO HS #30 tab Acetaminophen Tab [Tylenol] 650 mg PO Q6HR PRN tab PRN Reason: Fever And/ Or Pain Allopurinol [Zyloprim] 100 mg PO DAILY lamoTRIgine [LaMICtal] 100 mg PO BID Apixaban [Eliquis] 5 mg PO BID #60 tab Spironolactone [Aldactone] 12.5 mg PO DAILY #30 tab Aspirin 81 mg PO DAILY #30 chew Fludrocortisone [Florinef] 0.1 mg PO DAILY #30 tab Metoprolol Tartrate [Lopressor] 100 mg PO DAILY Changed Furosemide [Lasix] 40 mg PO BID #60 Discontinued Donepezil [Aricept] 10 mg PO BID Memantine [Namenda] 10 mg PO BID Gabapentin [Neurontin] 100 mg PO TID Discharge Medication List Citalopram Hydrobromide [Citalopram HBr] 20 mg PO DAILY 04/09/19 [History] Linaclotide [Linzess] 145 mcg PO DAILY 04/09/19 [History] Losartan Potassium [Cozaar] 25 mg PO DAILY 04/09/19 [History] Mirabegron [Myrbetriq] 50 mg PO DAILY 04/09/19 [History] Omeprazole 20 mg PO BID 04/25/21 [History] Oxybutynin Chloride [Oxybutynin Chloride ER] 10 mg PO DAILY 04/25/21 [History] lamoTRIgine [LaMICtal] 100 mg PO BID 04/25/21 [History] Apixaban [Eliquis] 5 mg PO BID #60 tab 04/26/21 [Rx] Aspirin 81 mg PO DAILY #30 chew 04/28/21 [Rx] Atorvastatin [Lipitor] 40 mg PO HS #30 tab 04/28/21 [Rx] Spironolactone [Aldactone] 12.5 mg PO DAILY #30 tab 06/22/21 [Rx] Acetaminophen Tab [Tylenol] 650 mg PO Q6HR PRN tab 05/22/21 [Rx] Fludrocortisone [Florinef] 0.1 mg PO DAILY #30 tab 05/22/21 [Rx] Allopurinol [Zyloprim] 100 mg PO DAILY 06/29/21 [History] Metoprolol Tartrate [Lopressor] 100 mg PO DAILY 06/29/21 [History] Furosemide [Lasix] 40 mg PO BID #60 07/02/21 [Rx] LORazepam [Ativan] 1 mg PO Q4H PRN 3 Days #18 tab 07/02/21 [Rx] Follow up Appointment(s)/Referral(s): Dinesh Wray MD [Primary Care Provider] - 1-2 days Activity/Diet/Wound Care/Special Instructions: Patient to follow up with [facility] on July 28 5:00PM at [address] [place] [id number] . Patient will be seen by Dr. Love for psychiatry. Per admissions counselor Sophy will call patient early next week and may be able set up a home visit much sooner than 07/28/21. Discharge/Stand Alone Forms: Who Do I Call?, Community Resources, Outpatient Counseling Discharge Disposition: HOME SELF-CARE
[2021-07-02] MEDS ORDERED: FUROSEMIDE 40 MG TAB PO SCH (16:00)
== END 2021-07-02 16:11 | disposition home health service (06) | DRG 308 ==
LOC: EC 08:44 → 3SCARD 13:24
PROVIDERS: ADMIT Internal Medicine; ATTEND Internal Medicine
DX: I48.0 Paroxysmal atrial fibrillation (principal); I50.23 Acute on chronic systolic (congestive) heart failure; J96.01 Acute respiratory failure with hypoxia; N17.9 Acute kidney failure, unspecified; J45.901 Unspecified asthma with (acute) exacerbation; J44.1 Chronic obstructive pulmonary disease with (acute) exacerbation; K21.9 Gastro-esophageal reflux disease without esophagitis; I11.0 Hypertensive heart disease with heart failure; G40.909 Epilepsy, unspecified, not intractable, without status epilepticus; Z20.822 Contact with and (suspected) exposure to COVID-19; G93.89 Other specified disorders of brain; F06.30 Mood disorder due to known physiological condition, unspecified; G47.33 Obstructive sleep apnea (adult) (pediatric); E86.0 Dehydration; I25.10 Atherosclerotic heart disease of native coronary artery without angina pectoris; I25.5 Ischemic cardiomyopathy; F32.9 Major depressive disorder, single episode, unspecified; F41.9 Anxiety disorder, unspecified; E78.5 Hyperlipidemia, unspecified; I34.0 Nonrheumatic mitral (valve) insufficiency; T38.0X5A Adverse effect of glucocorticoids and synthetic analogues, initial encounter; H93.12 Tinnitus, left ear; H91.90 Unspecified hearing loss, unspecified ear; Z79.82 Long term (current) use of aspirin; Z79.01 Long term (current) use of anticoagulants; Z79.52 Long term (current) use of systemic steroids; Z79.899 Other long term (current) drug therapy; Z92.3 Personal history of irradiation; Z85.46 Personal history of malignant neoplasm of prostate; Z95.5 Presence of coronary angioplasty implant and graft; Z87.820 Personal history of traumatic brain injury; Z87.19 Personal history of other diseases of the digestive system; Z90.79 Acquired absence of other genital organ(s); Z87.448 Personal history of other diseases of urinary system; Z86.69 Personal history of other diseases of the nervous system and sense organs; Z98.890 Other specified postprocedural states; Z82.49 Family history of ischemic heart disease and other diseases of the circulatory system
CPT/HCPCS: 36415; 71046; 80048; 80053; 81001; 83605; 83735; 83880; 84145; 84484; 85025; 85610; 85730; 87040; 87635; 93005; 94640; 94760; 96365; 96366; 96368; 96375; 99291

== ENCOUNTER 2021-10-26 08:04 | Inpatient (IN) | payer MEDICARE, OTHER ==
[2021-10-26] MEDS ORDERED: SODIUM CHLORIDE 0.9% 500 ML 500 ML IV ONE (08:07)
[2021-10-26 08:17] LABS: Glucose,Whole Blood 149 mg/dL (75-99)
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
[2021-10-26 08:34] LABS: Basophils % (A) 1 %; Eosinophils # (A) 0.2 k/uL (0-0.7); Eosinophils % (A) 3 %; HCT 40.9 % (39.0-53.0); HGB 12.9 gm/dL (13.0-17.5); Hypochromasia Slight; Lymphocytes # (A) 1.3 k/uL (1.0-4.8); Lymphocytes % (A) 21 %; MCH 26.1 pg (25.0-35.0); MCHC 31.5 g/dL (31.0-37.0); MCV 82.8 fL (80.0-100.0); Mean Platelet Volume 8.3; Monocytes # (A) 0.6 k/uL (0-1.0); Monocytes % (A) 9 %; Neutrophils # (A) 3.8 k/uL (1.3-7.7); Neutrophils % (A) 63 %; Platelet Count 267 k/uL (150-450); RBC 4.94 m/uL (4.30-5.90); RDW 15.5 % (11.5-15.5)
--- NOTE | 2021-10-26 08:49 | XR ---
EXAMINATION TYPE: XR chest 1V portable DATE OF EXAM: 10/26/2021 COMPARISON: Chest x-ray June 29, 2021 HISTORY: Altered mental status and weakness. TECHNIQUE: Single frontal view of the chest is obtained. FINDINGS: There is cardiomegaly with central vascular congestion. Retrocardiac lucency consistent wi th moderate to large size hiatal hernia is confirmed on CT abdomen study May 18, 2021. Degenerative change bilateral glenohumeral joints. IMPRESSION: Chronic changes with suspected CHF exacerbation as there is cardiomegaly with moderate c entral vascular congestion felt present.
--- NOTE | 2021-10-26 08:51 | CT ---
EXAMINATION TYPE: CT brain [place] con DATE OF EXAM: 10/26/2021 COMPARISON: 05/18/2021 HISTORY: 71-year-old male confusion, altered mental status CT DLP: 1575.2 mGycm Automated exposure control for dose reduction was used. Technique: Examination of the head was done in axial plane without intravenous contrast. Coronal and sagittal reconstructions performed. CT of the cervical spine was obtained in axial plane without intravenous injection of contrast mater ial. Coronal and sagittal reformatted images were obtained from the axial views for evaluation of f ractures, spinal alignment and canal. FINDINGS: Head: There is no evidence of acute intracranial hemorrhage, acute ischemic changes, mass, mass-effect, or extra-axial fluid collection. There is no effacement of cerebral sulci or basal subarachnoid cister ns. Unchanged mild ventricular prominence likely secondary to mild central cerebral atrophy. There is no midline shift. Mccartney-white matter distinction is preserved. Area of cortical encephalomalacia right parietal-occipital junction is unchanged. Large bone density projecting into the right maxillary sinus measuring 3.0 cm was seen previously as well, possibly area of fibrous dysplasia or large osteoma. Slight leftward nasal septal deviation. Ma stoid air cells well pneumatized. Orbits and globes are intact. Cervical spine: No craniocervical junction anomaly, predental space widening, or prevertebral soft tissue swelling. D egenerative changes of the C1 dens articulation. Facet and uncovertebral joint arthropathy throughout, greatest on the right. Assessment of the spinal canal from C4-C5 and below is limited due to artifact from the patient's zachariah ulders. Alignment is maintained. No acute fracture seen of the spine. Mild multilevel degenerative disc disease. Sagittal and coronal reformatted images confirm above findings. COMBINED IMPRESSION: 1. Stable area of encephalomalacia right parietal-occipital junction suggesting area of previous infa rct. Stable mild central cerebral atrophy. No acute intracranial abnormality seen. 2. No acute fracture or malalignment of the cervical spine. Mild to moderate multilevel spondylotic c hange.
[2021-10-26 08:52] LABS: ALT 19 U/L (4-49); African American GFR (CKD) 75 (>60 ml/min/1.73 sqM); Albumin 4.3 g/dL (3.5-5.0); Alcohol <10 mg/dL; Anion Gap 14 mmol/L; Blood Urea Nitrogen 15 mg/dL (9-20); Calcium 9.5 mg/dL (8.4-10.2); Carbon Dioxide 20 mmol/L (22-30); Chloride 105 mmol/L (98-107); Glucose 170 mg/dL (74-99); Magnesium 2.2 mg/dL (1.6-2.3); Non-African American GFR(CKD) 64 (>60 ml/min/1.73 sqM); Sodium 139 mmol/L (137-145); Total Bilirubin 0.6 mg/dL (0.2-1.3)
[2021-10-26 09:00] LABS: AST 29 U/L (17-59); Alkaline Phosphatase 134 U/L (38-126); Partial Thromboplastin Time 21.9 sec (22.0-30.0); Prothrombin Time 10.9 sec (9.0-12.0)
[2021-10-26] MEDS ORDERED: ACETAMINOPHEN TAB 500 MG TAB PO STA (09:52)
[2021-10-26] MEDS ORDERED: MORPHINE SULFATE 2 MG/ML SYRINGE IVP STA (09:52)
[2021-10-26] MEDS ORDERED: LORazepam 2 MG/ML INJ IV PRN (09:53)
[2021-10-26] MEDS ORDERED: NALOXONE 0.4 MG/ML 1 ML VIAL IV PRN (09:54)
[2021-10-26] MEDS ORDERED: ACETAMINOPHEN TAB 325 MG TAB PO PRN (09:54)
[2021-10-26] MEDS ORDERED: levETIRAcetam IV 1,500 MG in SALINE 1 100ML.BAG IVPB ONE (10:00)
[2021-10-26] MEDS ORDERED: Acetaminophen-Codeine 300-30mg TAB PO PRN (10:38)
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
[2021-10-26] MEDS: METOPROLOL SUCCINATE (ER) 100 MG TAB.ER.24H PO SCH (11:17)
[2021-10-26] MEDS: FUROSEMIDE 10 MG/ML 4 ML VIAL IV SCH ×2 (11:18→23:39)
[2021-10-26] MEDS: LOSARTAN 25 MG TAB PO SCH (11:18)
[2021-10-26] MEDS: DIGOXIN 125 MCG TAB PO SCH (11:18)
[2021-10-26] MEDS: APIXABAN 5 MG TAB PO SCH ×2 (11:18→22:09)
[2021-10-26] MEDS ORDERED: ONDANSETRON 4 MG/2 ML VIAL IVP STA (11:27)
[2021-10-26] MEDS: PANTOPRAZOLE 40 MG/10 ML VIAL IVP SCH (11:34)
[2021-10-26 11:38] LABS: Glucose,Whole Blood 136 mg/dL (75-99)
[2021-10-26 11:50] LABS: Appearance,Urine Cloudy (Clear); Bilirubin,Urine Negative (Negative); Blood,Urine Large (Negative); Color,Urine Yellow; Glucose,Urine (UA) Negative (Negative); Hyaline Casts,Urine 3 /lpf (0-2); Ketones,Urine Negative (Negative); Leukocyte Esterase,Urine Small (Negative); Mucus,Urine Rare /hpf; Nitrite,Urine Negative (Negative); PH, Urine 6.5 (5.0-8.0); Protein,Urine 1+ (Negative); RBC,Urine 83 /hpf (0-5); Specific Gravity,Urine 1.016 (1.001-1.035); Squamous Epithelial Cell,Urine 3 /hpf (0-4); Urobilinogen,Urine <2.0 mg/dL (<2.0); WBC,Urine 15 /hpf (0-5)
[2021-10-26 12:04] LABS: Amphetamine Screen,Urine Not Detected (NotDetected); Barbiturate Screen,Urine Not Detected (NotDetected); Benzodiazepines Screen,Urine Not Detected (NotDetected); Cocaine Screen,Urine Not Detected (NotDetected); Methadone Screen, Urine Not Detected (NotDetected); Opiate Screen,Urine Detected (NotDetected); Oxycodone Screen, Urine Not Detected (NotDetected); Phencyclidine Screen,Urine Not Detected (NotDetected); Tricyclic Antidepressant,Urine Not Detected (NotDetected); Urn Cannabinoid Scrn Not Detected (NotDetected)
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
[2021-10-26 13:20] LABS: Digoxin 0.8 ng/mL
--- NOTE | 2021-10-26 14:16 | P.PN ---
Progress Note - Text Progress Note Date: 10/26/21 Urinalysis reviewed patient will be started on Rocephin. Await urine cultures.
[2021-10-26] MEDS: IPRATROPIUM-ALBUTEROL 3 ML NEB INHALATION SCH ×3 (15:02→22:52)
[2021-10-26 15:55] LABS: Glucose,Whole Blood 104 mg/dL (75-99)
[2021-10-26] MEDS: INSULIN ASPART (NovoLOG) 100 UNIT/ML VIAL SQ SCH ×2 (16:02→18:04)
[2021-10-26] MEDS: lamoTRIgine 100 MG TAB PO SCH ×2 (16:04→23:40)
[2021-10-26] MEDS: lamoTRIgine 25 MG TAB PO SCH ×2 (16:04→23:40)
[2021-10-26 17:55] LABS: Glucose,Whole Blood 97 mg/dL (75-99)
[2021-10-26] MEDS ORDERED: levETIRAcetam IV 1,500 MG in SALINE 1 100ML.BAG IVPB SCH (21:00)
[2021-10-26] MEDS ORDERED: ATORVASTATIN 40 MG TAB PO SCH (21:00)
[2021-10-27 01:08] LABS: Glucose,Whole Blood 104 mg/dL (75-99)
[2021-10-27 02:09] VITALS: TEMP 98.3
[2021-10-27] MEDS: IPRATROPIUM-ALBUTEROL 3 ML NEB INHALATION SCH ×4 (02:41→15:26)
[2021-10-27 05:11] LABS: Basophils % (A) 0 %; Eosinophils # (A) 0.1 k/uL (0-0.7); Eosinophils % (A) 1 %; HCT 36.9 % (39.0-53.0); Hypochromasia Slight; Lymphocytes # (A) 1.1 k/uL (1.0-4.8); Lymphocytes % (A) 20 %; MCH 26.5 pg (25.0-35.0); MCHC 32.5 g/dL (31.0-37.0); MCV 81.8 fL (80.0-100.0); Mean Platelet Volume 8.4; Monocytes # (A) 0.5 k/uL (0-1.0); Monocytes % (A) 10 %; Neutrophils # (A) 3.7 k/uL (1.3-7.7); Neutrophils % (A) 65 %; Platelet Count 230 k/uL (150-450); RBC 4.51 m/uL (4.30-5.90); RDW 15.6 % (11.5-15.5); WBC 5.6 k/uL (3.8-10.6)
--- NOTE | 2021-10-27 07:12 | XR ---
EXAMINATION TYPE: XR chest 1V DATE OF EXAM: 10/27/2021 COMPARISON: Chest x-ray 10/26/2021, CT 05/18/2021 HISTORY: Heart failure TECHNIQUE: Single frontal view of the chest is obtained. FINDINGS: The heart remains enlarged, patient is rotated. There is no evident pneumothorax or pleura l effusion. The prominence the central vascularity has improved. There are overlying artifacts. Retro cardiac density is suspected. Interstitium is mildly increased. IMPRESSION: There may be some improvement in aeration, volume status as compared to prior exam, hiat al hernia with partial intrathoracic stomach
[2021-10-27 07:30] LABS: Glucose,Whole Blood 183 mg/dL (75-99)
[2021-10-27] MEDS: INSULIN ASPART (NovoLOG) 100 UNIT/ML VIAL SQ SCH ×2 (09:10→12:59)
[2021-10-27] MEDS: APIXABAN 5 MG TAB PO SCH (09:11)
[2021-10-27] MEDS: DIGOXIN 125 MCG TAB PO SCH (09:11)
[2021-10-27] MEDS: LOSARTAN 25 MG TAB PO SCH (09:12)
[2021-10-27] MEDS: METOPROLOL SUCCINATE (ER) 100 MG TAB.ER.24H PO SCH (09:12)
[2021-10-27] MEDS: lamoTRIgine 25 MG TAB PO SCH (09:12)
[2021-10-27] MEDS: FUROSEMIDE 10 MG/ML 4 ML VIAL IV SCH (09:12)
[2021-10-27] MEDS: lamoTRIgine 100 MG TAB PO SCH (09:12)
[2021-10-27] MEDS: PANTOPRAZOLE 40 MG/10 ML VIAL IVP SCH (09:13)
[2021-10-27 10:01] LABS: African American GFR (CKD) 69.1 (60.0-200.0); Albumin 4.1 g/dL (3.8-4.9); Albumin/Globulin Ratio 2.16 (1.60-3.17); Anion Gap 11.8 mmol/L (10.00-18.00); BUN/Creat Ratio 13.5 Ratio (12.00-20.00); Blood Urea Nitrogen 16.2 mg/dL (9.0-27.0); Carbon Dioxide 25.2 mmol/L (20.0-27.5); Globulin 1.9 g/dL (1.6-3.3); Non-African American GFR(CKD) 59.6 (60.0-200.0); Potassium 3.8 mmol/L (3.5-5.5); Total Bilirubin 0.3 mg/dL (0.30-1.20)
--- NOTE | 2021-10-27 11:03 | P.PN ---
Subjective Progress Note Date: 10/27/21 Principal diagnosis: Seizure, UTI, CHF exacerbation Patient seen and examined at bedside. Speaks very broken Maltese. Patient denies chest pain or shortness of breath. Patient is eager to go home. Objective - Vital Signs Vital signs: Vital Signs Temp 98.3 F 10/27/21 02:00 Pulse 80 10/27/21 08:56 Resp 18 10/27/21 08:56 BP 111/68 10/27/21 08:00 Pulse Ox 95 10/27/21 08:48 Intake & Output 10/26/21 10/27/21 10/27/21 18:59 06:59 18:59 Output Total 600 Balance -600 Weight 90.71 kg 90.71 kg Output: Urine 600 Other: Voiding Method Urinal # Voids 1 - Exam General: [non toxic], [no distress], [appears at stated age] Derm: [warm], [dry] Head: [atraumatic], [normocephalic], [symmetric] Eyes: [EOMI], [no lid lag], [anicteric sclera] Mouth: [no lip lesion], [mucus membranes moist] Cardiovascular: [S1S2 reg], [no murmur], [positive posterior tibial pulse bilateral], Lungs: [bilateral crackles] , [no accessory muscle use] Abdominal: [soft], [ nontender to palpation], [no guarding], [no appreciable organomegaly] Ext: [no gross muscle atrophy], [no edema], [no contractures] Neuro: [ CN II-XI grossly intact], [no focal neuro deficits] Psych: [Alert], [oriented], [appropriate affect] - Labs CBC & Chem 7: 10/27/21 04:47 10/27/21 04:47 Labs: Abnormal Lab Results - Last 24 Hours (Table) 10/26/21 10/26/21 10/26/21 Range/Units 08:21 11:32 12:18 Hgb (13.0-17.5) gm/dL Hct (39.0-53.0) % RDW (11.5-15.5) % Est GFR (CKD-EPI)NonAf (60.0-200.0) POC Glucose (mg/dL) 136 H (75-99) mg/dL Hemoglobin A1c 6.1 H (4.0-6.0) % Plasma Lactic Acid Brennan (0.7-2.0) mmol/L AST (14-35) U/L Alkaline Phosphatase (41-126) U/L Total Protein (6.2-8.2) g/dL Urine Protein 1+ H (Negative) Urine Blood Large H (Negative) Ur Leukocyte Esterase Small H (Negative) Urine RBC 83 H (0-5) /hpf Urine WBC 15 H (0-5) /hpf Hyaline Casts 3 H (0-2) /lpf Urine Mucus Rare H (None) /hpf Urine Opiates Screen Detected H (NotDetected) 10/26/21 10/26/21 10/27/21 Range/Units 12:18 15:50 01:06 Hgb (13.0-17.5) gm/dL Hct (39.0-53.0) % RDW (11.5-15.5) % Est GFR (CKD-EPI)NonAf (60.0-200.0) POC Glucose (mg/dL) 104 H 104 H (75-99) mg/dL Hemoglobin A1c (4.0-6.0) % Plasma Lactic Acid Brennan 2.2 H* (0.7-2.0) mmol/L AST (14-35) U/L Alkaline Phosphatase (41-126) U/L Total Protein (6.2-8.2) g/dL Urine Protein (Negative) Urine Blood (Negative) Ur Leukocyte Esterase (Negative) Urine RBC (0-5) /hpf Urine WBC (0-5) /hpf Hyaline Casts (0-2) /lpf Urine Mucus (None) /hpf Urine Opiates Screen (NotDetected) 10/27/21 10/27/21 10/27/21 Range/Units 04:47 04:47 07:28 Hgb 12.0 L (13.0-17.5) gm/dL Hct 36.9 L (39.0-53.0) % RDW 15.6 H (11.5-15.5) % Est GFR (CKD-EPI)NonAf 59.6 L (60.0-200.0) POC Glucose (mg/dL) 183 H (75-99) mg/dL Hemoglobin A1c (4.0-6.0) % Plasma Lactic Acid Brennan (0.7-2.0) mmol/L AST 11 L (14-35) U/L Alkaline Phosphatase 135 H (41-126) U/L Total Protein 6.0 L (6.2-8.2) g/dL Urine Protein (Negative) Urine Blood (Negative) Ur Leukocyte Esterase (Negative) Urine RBC (0-5) /hpf Urine WBC (0-5) /hpf Hyaline Casts (0-2) /lpf Urine Mucus (None) /hpf Urine Opiates Screen (NotDetected) Microbiology - Last 24 Hours (Table) 10/26/21 08:21 Urine Culture - Preliminary Urine,Voided Assessment and Plan Plan: 1. Acute altered mental status likely secondary to tonic-clonic seizure due to new medication citalopram Discontinued citalopram Patient has a known history of absence seizures but never known to have a tonic- clonic seizure Continue Lamictal Neuro check Neurology recommendations appreciated PT/OT 2. UTI Continue Rocephin Await pending culture 3. Bilateral pulmonary congestion likely due to decompensated heart failure Lasix 40 mg IV push every 12 hours Repeat chest x-ray in the a.m. Strict I's and O's 4. History of atrial fibrillation Continue Eliquis, beta shira and digoxin Check digoxin levels 5. Elevated glucose levels Check hemoglobin A1c Insulin sliding scale 6. History of coronary artery disease with stenting Continue statin 7. Headache resolved Tylenol with codeine when necessary pain 8. GI DVT prophylaxis 9. A.m. labs 10. DC planning in the a.m.
[2021-10-27 13:03] LABS: Glucose,Whole Blood 103 mg/dL (75-99)
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
[2021-10-27 16:09] VITALS: BP 98/81; PULSE 87; RESP 17
--- NOTE | 2021-10-27 17:41 | P.DS ---
Providers Date of admission: 10/26/21 09:54 Expected date of discharge: 10/27/21 Attending physician: Nadira Burton DO Consults: 10/26/21 09:54 Consult Physician Routine Consulting Provider: Perry Arguelles Consult Reason/Comments: seizure Do you want consulting provider notified?: Yes 10/26/21 10:55 Consult Physician Routine Consulting Provider: Duke Vivar Consult Reason/Comments: CHF with atrial fib Do you want consulting provider notified?: Yes Primary care physician: [facility] Course: Patient admitted to the hospital without her mental status due to seizure activity evaluated by neurology Lamictal has been increased also patient has been started on Keppra Patient insisting he wants to go home begin to be agitated As per family the patient does have episodes like this at home and they want him to go home So patient will be discharged home Physical in no distress Discharge plan Other mental status likely due to UTI and seizure activity around baseline per family Agitation not unusual for the patient as per family patient to follow-up with primary care physician UTI continue cefdinir Patient Condition at Discharge: Stable Plan - Discharge Summary Discharge Rx Participant: No New Discharge Prescriptions: New Cefdinir 300 mg PO Q12HR 5 Days #10 cap levETIRAcetam [Keppra] 500 mg PO BID 60 Days #60 tab lamoTRIgine [LaMICtal] 25 mg PO BID 30 Days #60 tab Continue Losartan Potassium [Cozaar] 25 mg PO DAILY Citalopram Hydrobromide 20 mg PO DAILY Atorvastatin [Lipitor] 40 mg PO HS #30 tab Furosemide [Lasix] 40 mg PO BID #60 tab Clopidogrel [Plavix] 75 mg PO DAILY Metoprolol Succinate (ER) [Toprol XL] 100 mg PO DAILY lamoTRIgine [LaMICtal] 100 mg PO BID Apixaban [Eliquis] 5 mg PO BID #60 tab Digoxin [Lanoxin] 125 mcg PO DAILY Discharge Medication List Citalopram Hydrobromide 20 mg PO DAILY 04/09/19 [History] Losartan Potassium [Cozaar] 25 mg PO DAILY 04/09/19 [History] lamoTRIgine [LaMICtal] 100 mg PO BID 04/25/21 [History] Apixaban [Eliquis] 5 mg PO BID #60 tab 04/26/21 [Rx] Atorvastatin [Lipitor] 40 mg PO HS #30 tab 04/28/21 [Rx] Furosemide [Lasix] 40 mg PO BID #60 tab 07/02/21 [Rx] Clopidogrel [Plavix] 75 mg PO DAILY 10/26/21 [History] Digoxin [Lanoxin] 125 mcg PO DAILY 10/26/21 [History] Metoprolol Succinate (ER) [Toprol XL] 100 mg PO DAILY 10/26/21 [History] Cefdinir 300 mg PO Q12HR 5 Days #10 cap 10/27/21 [Rx] lamoTRIgine [LaMICtal] 25 mg PO BID 30 Days #60 tab 10/27/21 [Rx] levETIRAcetam [Keppra] 500 mg PO BID 60 Days #60 tab 10/27/21 [Rx] Follow up Appointment(s)/Referral(s): Dinesh Wray MD [Primary Care Provider] - 1-2 days (Family to make own appt. Office closed at time of discharge. ) Patient Instructions/Handouts: Cefuroxime (By mouth), Lamotrigine (By mouth), Levetiracetam (By mouth), Epilepsy (DC) Discharge Disposition: HOME SELF-CARE
== END 2021-10-27 17:51 | disposition home or self-care (01) | DRG 101 ==
LOC: EC 08:04 → 5NMEDONC 09:54
PROVIDERS: ADMIT Internal Medicine; ATTEND Internal Medicine
DX: G40.509 Epileptic seizures related to external causes, not intractable, without status epilepticus (principal); N39.0 Urinary tract infection, site not specified; F05 Delirium due to known physiological condition; I42.9 Cardiomyopathy, unspecified; I48.21 Permanent atrial fibrillation; Z20.822 Contact with and (suspected) exposure to COVID-19; R41.82 Altered mental status, unspecified; I11.0 Hypertensive heart disease with heart failure; S01.01XA Laceration without foreign body of scalp, initial encounter; I25.10 Atherosclerotic heart disease of native coronary artery without angina pectoris; G31.89 Other specified degenerative diseases of nervous system; M47.892 Other spondylosis, cervical region; J44.9 Chronic obstructive pulmonary disease, unspecified; I50.9 Heart failure, unspecified; T43.225A Adverse effect of selective serotonin reuptake inhibitors, initial encounter; E78.5 Hyperlipidemia, unspecified; R51.9 Headache, unspecified; F32.A Depression, unspecified; F41.9 Anxiety disorder, unspecified; G93.89 Other specified disorders of brain; H91.90 Unspecified hearing loss, unspecified ear; Z79.01 Long term (current) use of anticoagulants; Z79.02 Long term (current) use of antithrombotics/antiplatelets; X58.XXXA Exposure to other specified factors, initial encounter; Z79.899 Other long term (current) drug therapy; Z85.46 Personal history of malignant neoplasm of prostate; Z86.73 Personal history of transient ischemic attack (TIA), and cerebral infarction without residual deficits; Z87.891 Personal history of nicotine dependence; Z95.5 Presence of coronary angioplasty implant and graft; Z87.19 Personal history of other diseases of the digestive system; Z92.3 Personal history of irradiation
CPT/HCPCS: 36415; 70450; 71045; 72125; 80053; 80162; 80306; 80320; 81001; 83036; 83605; 83735; 83880; 84443; 84484; 85025; 85610; 85730; 87086; 87635; 93005; 94640; 94760; 96361; 96365; 96366; 96375; 99285

== ENCOUNTER 2022-11-05 11:17 | Emergency (ER) | payer MEDICARE, OTHER ==
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
--- NOTE | 2022-11-05 11:51 | CT ---
EXAMINATION TYPE: CT brain wo con DATE OF EXAM: 11/05/2022 COMPARISON: 08/26/2021 HISTORY: 72-year-old male syncope TECHNIQUE: Examination was done in axial plane without intravenous contrast. Coronal and sagittal r econstructions performed. CT DLP: 1188.4 mGycm Automated exposure control for dose reduction was used. FINDINGS: There is no evidence of acute intracranial hemorrhage, acute ischemic changes, mass effect, or extra -axial fluid collection. There is no effacement of cerebral sulci or basal subarachnoid cisterns. T here is no hydrocephalus. There is no midline shift. Mccartney-white matter distinction is preserved. There is mild generalized supratentorial volume loss small anterior left parafalcine extra-axial nodu le measuring 8 mm versus 7 mm on 10/26/2021 and mild ventricular prominence is unchanged, likely cent ral cerebral atrophy. There are atherosclerotic calcifications carotid siphons. Similar encephalomalacia right occipital p arietal junction. Partially empty sella. Leftward nasal septal deviation. Chronic bony deformity, either from prior trauma or congenital lesio n such as fibrous dysplasia right maxillary sinus. Trace mucosal thickening ethmoid air cells. Mastoi d air cells are well pneumatized. IMPRESSION: 1. Similar mild ventriculomegaly likely due to central atrophy. There is a small 8 mm left parafalcin e meningioma versus 7 mm on 10/26/2021. Consider outpatient neurosurgery referral for potential surve illance. 2. Unchanged encephalomalacia right parieto-occipital junction related to prior vascular or traumatic insult. 3. Unchanged bony deformity right maxillary sinus either sequela of prior trauma or congenital lesion such as fibrous dysplasia. 4. Otherwise, no acute intracranial abnormality seen.
--- NOTE | 2022-11-05 11:54 | XR ---
EXAMINATION TYPE: XR chest 2V DATE OF EXAM: 11/05/2022 11:47 AM COMPARISON: Chest radiographs from 10/27/2021 TECHNIQUE: XR chest 2V Frontal and lateral views of the chest. CLINICAL INDICATION:Male, 72 years old with history of syncope; FINDINGS: Lungs/Pleura: There is no evidence of pleural effusion, focal consolidation, or pneumothorax. Pulmonary vascularity: Pulmonary vascular congestion. Heart/mediastinum: Cardiomediastinal silhouette is enlarged and stable. Musculoskeletal: Multiple level degenerative disc disease changes seen throughout the spine. Other findings: Hiatal hernia with partially intrathoracic stomach. IMPRESSION: Persistent cardiomegaly with pulmonary vascular congestion suggestive of CHF exacerbation.
[2022-11-05 12:09] LABS: Anisocytosis Marked; Basophils % (A) 0 %; Eosinophils # (A) 0.2 k/uL (0-0.7); Eosinophils % (A) 4 %; HCT 34.2 % (39.0-53.0); HGB 10.1 gm/dL (13.0-17.5); Hypochromasia Marked; Lymphocytes # (A) 0.6 k/uL (1.0-4.8); Lymphocytes % (A) 13 %; MCH 22.2 pg (25.0-35.0); MCHC 29.5 g/dL (31.0-37.0); MCV 75.2 fL (80.0-100.0); Mean Platelet Volume 9.3; Microcytosis Marked; Monocytes # (A) 0.4 k/uL (0-1.0); Monocytes % (A) 9 %; Neutrophils % (A) 70 %; Platelet Count 200 k/uL (150-450); Poikilocytosis Slight; RBC 4.54 m/uL (4.30-5.90); WBC 4.3 k/uL (3.8-10.6)
[2022-11-05 12:27] LABS: RDW 25.3 % (11.5-15.5)
[2022-11-05 12:38] LABS: INR 1.2 (<1.2); Partial Thromboplastin Time 23.8 sec (22.0-30.0); Prothrombin Time 12.1 sec (9.0-12.0)
[2022-11-05 13:14] LABS: Albumin 4.1 g/dL (3.5-5.0); Calcium 8.6 mg/dL (8.4-10.2); Total Bilirubin 0.5 mg/dL (0.2-1.3); Total Protein 6.4 g/dL (6.3-8.2)
[2022-11-05] MEDS ORDERED: levETIRAcetam IV 500 MG in SODIUM CHLORIDE 0.9% 100 ML IVPB STA (13:22)
[2022-11-05 13:30] LABS: Magnesium 2.2 mg/dL (1.6-2.3); Potassium 4.8 mmol/L (3.5-5.1)
[2022-11-05 13:52] VITALS: TEMP 99.1
[2022-11-05 14:56] VITALS: BP 156/82; PULSE 75; RESP 18
== END 2022-11-05 14:56 | disposition home or self-care (01) ==
LOC: EC 11:17
DX: R46.4 Slowness and poor responsiveness (principal); I11.0 Hypertensive heart disease with heart failure; I25.10 Atherosclerotic heart disease of native coronary artery without angina pectoris; I48.91 Unspecified atrial fibrillation; I50.9 Heart failure, unspecified; J44.9 Chronic obstructive pulmonary disease, unspecified; E78.5 Hyperlipidemia, unspecified; Z87.891 Personal history of nicotine dependence; Z79.01 Long term (current) use of anticoagulants; Z79.02 Long term (current) use of antithrombotics/antiplatelets; Z79.899 Other long term (current) drug therapy
CPT/HCPCS: 36415; 93005; 80053; 80177; 83735; 84484; 85025; 85610; 85730; 71046; 70450; 99285; J1953

== ENCOUNTER → 2023-11-21 | Outpatient (CLI) | payer MEDICARE, OTHER ==
--- NOTE | 2023-11-21 13:04 | XR ---
EXAMINATION TYPE: XR chest 2V DATE OF EXAM: 11/21/2023 COMPARISON: 01/06/2023 HISTORY: 73-year-old male I 50.22, CHF TECHNIQUE: Frontal and lateral views FINDINGS: The heart is moderately enlarged. Additional retrocardiac density. Some patchy opacities present at t he right base, increased from prior. Visualized upper and mid lungs are clear. No sizable pleural eff usion. IMPRESSION: 1. Moderate cardiomegaly and an underlying large hiatal hernia redemonstrated. 2. New patchy atelectasis versus evolving infiltrate at the right base. 3. No other consolidation or pleural effusion seen.
== END | disposition home or self-care (01) ==
LOC: RADXRMAIN 11:38
DX: J98.11 Atelectasis (principal); K44.9 Diaphragmatic hernia without obstruction or gangrene; I51.7 Cardiomegaly; I50.22 Chronic systolic (congestive) heart failure
CPT/HCPCS: 71046

== ENCOUNTER → 2023-12-26 | Outpatient (CLI) | payer MEDICARE, OTHER ==
--- NOTE | 2023-12-26 17:52 | XR ---
EXAMINATION TYPE: XR chest 2V DATE OF EXAM: 12/26/2023 COMPARISON: 11/21/2023 HISTORY: 73-year-old male J9 8.11, atelectasis, chest pain, cough TECHNIQUE: Frontal and lateral views FINDINGS: Heart mildly enlarged. Underlying focal right basilar opacity. Large retrocardiac rounded opacity wit h air-fluid level. No sizable pleural effusion. IMPRESSION: 1. Cardiomegaly and underlying moderate to large hiatal hernia redemonstrated. 2. Ongoing activity right basilar atelectasis versus infiltrate. Not significantly changed from 2023.
== END | disposition home or self-care (01) ==
LOC: RADXRMAIN 11:41
PROVIDERS: ATTEND Internal Medicine
DX: I51.7 Cardiomegaly (principal); K44.9 Diaphragmatic hernia without obstruction or gangrene; J98.11 Atelectasis
CPT/HCPCS: 71046